=== PATIENT | female | born 1960 | race Caucasian/White ===

== ENCOUNTER 2016-12-21 18:22 | Emergency (ER) | payer MEDICARE ==
--- NOTE | 2016-12-21 20:06 | ER Document Report ---
HPI - HPI Patient complains to provider of: Dry skin patch Onset: Other - 3 days Onset/Duration: Persistent Quality of pain: No pain Pain Level: 0 Context: Patient presents complaining of a mildly pruritic dry skin patch to her posterior left leg. Patient states area has been there for the past 3 days. Patient denies any fever or injury. Patient additionally reports that she recently got her NovoLog 70/30 prescription refilled but she left the medication [place] a [place]. Patient states that the medicine was exposed to high heat and concerned will no longer be useful. Patient states that she called her insurance provider and they advised her that they will not pay for her to refill this medication. Patient states that the medication was over $3000. Patient states her insurance company advised her that if she changed the prescription to something else such as Novolin that they would be able to cover a new prescription. Patient is requesting a prescription of Novolin 70/30. Patient states she just moved to this area and has not gotten established with a primary doctor yet. Associated Symptoms: Other - dry Skin Exacerbated by: Denies Relieved by: Denies Similar symptoms previously: No Recently seen / treated by doctor: No - ROS ROS below otherwise negative: Yes Systems Reviewed and Negative: Yes All other systems reviewed and negative - CONSTITUTIONAL Constitutional: DENIES: Fever, Chills - MUSCULOSKELETAL Musculoskeletal: DENIES: Extremity pain - DERM Skin Color: Normal Notes: dry skin <MARGARET HAGAN - Last Filed: 12/21/16 21:53> Past Medical History - General Information source: Patient - Social History Smoking Status: Current Every Day Smoker Frequency of alcohol use: None Drug Abuse: None Occupation: none Lives with: Family Family History: Reviewed & Not Pertinent Patient has suicidal ideation: No Patient has homicidal ideation: No - Medical History Medical History: Other - RSD Endocrine Medical History: Reports: Hx Diabetes Mellitus Type 1 Renal/ Medical History: Denies: Hx Peritoneal Dialysis Past Surgical History: Reports: Hx Appendectomy, Hx Tubal Ligation <MARGARET HAGAN - Last Filed: 12/21/16 21:53> Vertical Provider Document - CONSTITUTIONAL Agree With Documented VS: Yes Exam Limitations: No Limitations General Appearance: WD/WN, No Apparent Distress - INFECTION CONTROL TRAVEL OUTSIDE OF THE [place] IN LAST 30 DAYS: No - HEENT HEENT: Atraumatic, Normocephalic - NECK Neck: Normal Inspection, Supple - RESPIRATORY Respiratory: Breath Sounds Normal, No Respiratory Distress O2 Sat by Pulse Oximetry: 96 - CARDIOVASCULAR Cardiovascular: Regular Rate, Regular Rhythm Pulses: Normal: Dorsalis pedis - MUSCULOSKELETAL/EXTREMETIES Musculoskeletal/Extremeties: MAEW, FROM - NEURO Level of Consciousness: Awake, Alert, Appropriate Motor/Sensory: No Motor Deficit - DERM Integumentary: Warm, Dry, Rash - Pt with crusting, scaling dry patch posterior left lower extremity, no erythema, no concern for cellulitis <MARGARET HAGAN - Last Filed: 12/21/16 21:53> Course - Re-evaluation Re-evalutation: 12/21/16 20:[address] Evans regarding patient presentation and her request to switch her medication. Dr. Evans advises consultation with rover tender for further advisement. 12/21/16 20:[address] Tadeo (endocrinology) at [facility] states that is a slight difference in the formulation between the NovoLog 7030 and Novolin 70/30. States that if this patient has good control of her blood sugar that her blood sugar might run a little bit lower with the Novolin and recommends decreasing the dose of Novolin by 10 units per each dose. Otherwise states that there should not be any significant problems with temporarily changing to Novolin 7030 so that patient can get her medication filled and be compliant with treating her diabetes. 12/21/16 20:35 The patient has been informed that they may have pre-hypertension or hypertension based on a blood pressure reading in the emergency department. I recommend that patient call the primary care provider listed on their discharge instructions or a physician of their choice by this week to arrange follow-up for further evaluation of possible pre-hypertension her hypertension. - Vital Signs Vital signs: Temp Pulse Resp BP Pulse Ox 98.9 F 101 H 18 141/70 H 96 12/21/16 18:27 12/21/16 18:27 12/21/16 18:27 12/21/16 18:27 12/21/16 18:27 <MARGARET HAGAN - Last Filed: 12/21/16 21:53> - Vital Signs Vital signs: Temp Pulse Resp BP Pulse Ox 98.7 F 90 18 138/70 H 96 12/21/16 21:00 12/21/16 21:00 12/21/16 21:00 12/21/16 21:00 12/21/16 21:56 <MARIO EVANS - Last Filed: 12/22/16 14:52> Discharge <MARGARET HAGAN - Last Filed: 12/21/16 21:53> <MARIO EVANS - Last Filed: 12/22/16 14:52> - Discharge Clinical Impression: Dry skin dermatitis, Elevated blood pressure reading, Hx of diabetes mellitus Condition: Stable Disposition: HOME, SELF-CARE Instructions: Topical Steroid Cream or Ointment (OM), Diabetes ([facility]), Family Physicians / Practices Additional Instructions: Return immediately for any new or worsening symptoms Followup with your primary care provider, call tomorrow to make a followup appointment Blood pressure was elevated today, recheck with the primary doctor next week to have this reevaluated Switching from NovoLog to Novolin may cause your blood sugar to run a little bit lower than usual, therefore we will decrease your usual dose of your insulin , while you are taking Novolin 70/30. You will need to monitor your blood sugar more frequently especially if you start to feel like your blood sugar is running low. Follow-up with the primary care provider for any additional refills of your medications. Prescriptions: Insulin NPH Hum/Reg Insulin Hm [Novolin 70-30 100 Unit/ml Vial] 1 dose SQ BID # 10 ml Triamcinolone Acetonide [Aristocort 0.1% Cream] 1 applic TP TID #60 gm Forms: Elevated Blood Pressure Referrals: [facility] [Provider Group] - Follow up as needed [facility] [Provider Group] - 12/24/16
[2016-12-21 21:11] VITALS: BP 138/70
== END 2016-12-21 21:00 | disposition home or self-care (01) ==
LOC: ER 18:22
DX: L30.8 Other specified dermatitis (principal); R03.0 Elevated blood-pressure reading, without diagnosis of hypertension; E10.9 Type 1 diabetes mellitus without complications; Z79.4 Long term (current) use of insulin
CPT/HCPCS: 99283

== ENCOUNTER 2017-10-13 18:47 | Inpatient (IN) | payer MEDICARE ==
[2017-10-13] MEDS ORDERED: NORMAL SALINE 1000 ML 1,000 ML IV ONE ×3 (18:58→22:26)
--- NOTE | 2017-10-13 19:01 | ER Document Report ---
ED Medical Screen (RME) - General Chief Complaint: Nausea/Vomiting Stated Complaint: NAUSEA VOMITING Time Seen by Provider: 10/13/17 18:54 Notes: This 57-year-old female patient reports onset about 8:00 this morning nausea vomiting. She has had this all day long. When EMS picked up the patient she is quite hypotensive, they document giving 150 mL's of normal saline and IV Zofran. Her nausea is better but she remains hypotensive with a blood pressure of 88 recorded at triage here. Her normal blood pressure is in the 135-145 range based on prior visits. IV normal saline will be hung using the saline lock in her hand and a request was made for a bed in the main emergency department as soon as possible. I have greeted and performed a rapid initial assessment of this patient. A comprehensive ED assessment and evaluation of the patient, analysis of test results and completion of the medical decision making process will be conducted by additional ED providers. TRAVEL OUTSIDE OF THE [place] IN LAST 30 DAYS: No - Related Data Allergies/Adverse Reactions: morphine Allergy (Verified 12/21/16 18:30)
[2017-10-13] MEDS ORDERED: ONDANSETRON HCL INJ/PF 4 MG/2 ML SDV IV ONE (19:24)
[2017-10-13 19:37] LABS: HEMATOCRIT 38.6 % (36.0-47.0); HEMOGLOBIN 11.6 g/dL (12.0-15.5); MEAN CORPUSCULAR HEMOGLOBIN 19.4 pg (27.0-33.4); MEAN CORPUSCULAR HGB CONC 30.1 g/dL (32.0-36.0); RED BLOOD COUNT 5.98 10^6/uL (3.72-5.28); RED CELL DISTRIBUTION WIDTH 20.7 % (11.5-14.0); WHITE BLOOD COUNT 10.4 10^3/uL (4.0-10.5)
[2017-10-13 19:49] LABS: ALANINE AMINOTRANSFERASE 23 U/L (9-52); ALBUMIN 4.6 g/dL (3.5-5.0); ALKALINE PHOSPHATASE 118 U/L (38-126); ANION GAP 18 (5-19); ASPARTATE AMINO TRANSFERASE 24 U/L (14-36); BILIRUBIN,DIRECT 0.2 mg/dL (0.0-0.4); BILIRUBIN,TOTAL 0.9 mg/dL (0.2-1.3); BLOOD UREA NITROGEN 23 mg/dL (7-20); CALCIUM 10.1 mg/dL (8.4-10.2); CARBON DIOXIDE 23 mmol/L (22-30); CHLORIDE 103 mmol/L (98-107); CREATINE KINASE 42 U/L (30-135); GLUCOSE 264 mg/dL (75-110); LIPASE 269.8 U/L (23-300); TOTAL PROTEIN 8.3 g/dL (6.3-8.2)
[2017-10-13 19:57] LABS: ABSOLUTE LYMPHOCYTES# (MANUAL) 1.7 10^3/uL (0.5-4.7); ABSOLUTE MONOCYTES # (MANUAL) 0.2 10^3/uL (0.1-1.4); ABSOLUTE NEUTROPHILS# (MANUAL) 8.5 10^3/uL (1.7-8.2); BASOPHILS % (MANUAL) 0 % (0-2); EOSINOPHILS % (MANUAL) 0 % (0-6); LYMPHOCYTES % (MANUAL) 15 % (13-45); MONOCYTES % (MANUAL) 2 % (3-13); SEGMENTED NEUTROPHILS % (MAN) 69 % (42-78); TOTAL CELLS COUNTED 100
--- NOTE | 2017-10-13 19:59 | EKG REPORT ---
SEVERITY:- OTHERWISE NORMAL ECG - SINUS TACHYCARDIA : Confirmed by: Hussein Byrd MD 13-Oct-2017 19:58:44
[2017-10-13 20:03] LABS: ANISOCYTOSIS 3+; HYPOCHROMASIA 2+; OVALOCYTES 1+; PLATELET CLUMPS PRESENT; PLATELET COMMENT DECREASED; POIKILOCYTOSIS 1+; POLYCHROMASIA SLIGHT; TEAR DROP CELLS SLIGHT; TOXIC GRANULATION SLIGHT; TOXIC VACUOLATION PRESENT
[2017-10-13 20:04] LABS: PLATELET COUNT 147 10^3/uL (150-450)
[2017-10-13 20:05] LABS: BAND NEUTROPHILS % (MANUAL) 13 % (3-5); MEAN CORPUSCULAR VOLUME 64 fl (80-97)
[2017-10-13] MEDS ORDERED: FLUCONAZOLE 100 MG TABLET PO ONE (20:15)
--- NOTE | 2017-10-13 21:16 | ER Document Report ---
ED General - General Chief Complaint: Nausea/Vomiting Stated Complaint: NAUSEA VOMITING Time Seen by Provider: 10/13/17 18:54 Notes: Patient is a 57-year-old female with a past medical history of COPD, hypertension, hyperlipidemia, diabetes, chronic pain, who presents with 2 days of persistent diarrhea as well as 24 hours of vomiting. The patient reports that she has been unable to tolerate any kind of oral fluid over the past 24 hours. She states the diarrhea is persistent and that she is having 4-5 diarrheal bowel movements every day. She states that she feels very dehydrated. She has recently moved to the area and does not have any access to primary care. She denies any focal abdominal pain but does note intermittent, moderate, cramping abdominal pain. She denies any fever, headache or neck pain although does note cough. She states that she is chronically short of breath secondary to her COPD and does not normally have home oxygen available to her. She denies any prior history of abdominal surgeries. TRAVEL OUTSIDE OF THE [place] IN LAST 30 DAYS: No - Related Data Allergies/Adverse Reactions: morphine Allergy (Verified 12/21/16 18:30) Past Medical History - General Information source: Patient, Relative - Social History Smoking Status: Current Every Day Smoker Frequency of alcohol use: None Drug Abuse: None Lives with: Family Family History: Reviewed & Not Pertinent Patient has suicidal ideation: No Patient has homicidal ideation: No Endocrine Medical History: Reports: Hx Diabetes Mellitus Type 2 Renal/ Medical History: Denies: Hx Peritoneal Dialysis Psychiatric Medical History: Reports: Hx Depression Past Surgical History: Reports: Hx Appendectomy, Hx Orthopedic Surgery - R ankle , Hx Tubal Ligation Review of Systems - Review of Systems Notes: Constitutional: Negative for fever. HENT: Negative for sore throat. Eyes: Negative for visual changes. Cardiovascular: Negative for chest pain. Positive for lightheadedness Respiratory: Negative for shortness of breath. Gastrointestinal: Positive for abdominal cramping, vomiting and diarrhea Genitourinary: Negative for dysuria. Musculoskeletal: Negative for back pain. Skin: Negative for rash. Neurological: Negative for headaches, weakness or numbness. 10 point ROS negative except as marked above and in HPI. Physical Exam - Vital signs Vitals: Temp Pulse Resp BP Pulse Ox 99.5 F 105 H 20 88/45 L 94 10/13/17 19:00 10/13/17 19:00 10/13/17 19:00 10/13/17 19:00 10/13/17 19:00 Interpretation: Hypotensive, Tachycardic Notes: PHYSICAL EXAMINATION: GENERAL: Appears uncomfortable, somewhat lethargic but in no acute distress HEAD: Atraumatic, normocephalic. EYES: Pupils equal round and reactive to light, extraocular movements intact, sclera anicteric, conjunctiva are normal. ENT: nares patent, oropharynx clear without exudates. Moderately dry mucous membranes. NECK: Normal range of motion, supple without lymphadenopathy LUNGS: Breath sounds clear to auscultation bilaterally and equal. No wheezes rales or rhonchi. HEART: Regular tachycardia without murmurs ABDOMEN: Soft, nontender, normoactive bowel sounds. No guarding, no rebound. No masses appreciated. EXTREMITIES: Normal range of motion, no pitting or edema. No cyanosis. NEUROLOGICAL: No focal neurological deficits. Moves all extremities spontaneously and on command. PSYCH: Somewhat lethargic SKIN: Warm, Dry, poor turgor, no rashes or lesions noted. Course - Re-evaluation Re-evalutation: 10/13/172009 Patient presents with nausea, vomiting and diarrhea that has been ongoing for the past 24 hours. The patient reports that she has had no ability to tolerate any fluid over this course of time. On examination the patient appears clinically dehydrated so was noted to be hypotensive into the 80s at time of arrival. Her blood pressure is improved to the upper 90s systolic after receiving 1 L of IV fluids and she is receiving to us her second liter at this time. Patient is noted to be mildly hypoxemic and reports a baseline history of COPD although does not have home oxygen supplementation at baseline. A chest x-ray will be obtained to exclude an acute infiltrate. She denies any chest pain to suggest the diagnosis of ACS or acute pulmonary embolus. Patient has no prior history of acute renal failure. Attempts at risk obtaining a catheterized urine specimen did not reveal any urine in the patient's bladder despite her to receiving 1 L of fluid. Will also obtain a renal ultrasound to evaluate for structural abnormalities that could be reducing the patient's acute kidney injury as her BUN/creatinine ratio is lower than would be anticipated for dehydration. Patient is in guarded condition and will require frequent reassessments. 10/13/17 21:15 Patient has again had a deterioration of her blood pressure currently 84 on 50. The second liter of fluid is now being hung. Will continue to monitor her closely. She remains in very guarded condition. 10/13/17 21:44 Patient's blood pressure has now improved to 106 on 58 with IV fluids. She remains moderately tachycardic at 104. Will continue to reassess frequently. 10/13/17 22:27 Patient is again having a deterioration in her blood pressure after the second liter of IV fluids has completed. Will start a third liter of IV fluids at this time. Lactate at 2. Venous blood gas unremarkable. 10/13/17 23:41 Patient's blood pressures remained within acceptable limits now for over an hour. I continue to weigh the renal ultrasound. I discussed with Dr. Ortiz and he has accepted the patient for hospitalization. - Vital Signs Vital signs: Temp Pulse Resp BP Pulse Ox 99.5 F 105 H 20 106/54 L 97 10/13/17 19:00 10/13/17 19:00 10/13/17 23:10 10/13/17 23:10 10/13/17 23:10 - Laboratory Result Diagrams: 10/13/17 19:15 10/13/17 19:15 Laboratory results interpreted by me: 10/13/17 10/13/17 10/13/17 19:15 19:15 19:33 RBC 5.98 H Hgb 11.6 L MCV 64 L MCH 19.4 L MCHC 30.1 L RDW 20.7 H Plt Count 147 L Band Neutrophils % 13 H Monocytes % (Manual) 2 L Abs Neuts (Manual) 8.5 H BUN 23 H Creatinine 2.15 H Est GFR ( Amer) 28 L Est GFR (Non-Af Amer) 23 L Glucose 264 H POC Glucose 240 H Total Protein 8.3 H Urine Protein Urine Glucose (UA) Urine Urobilinogen Ur Leukocyte Esterase 10/13/17 21:45 RBC Hgb MCV MCH MCHC RDW Plt Count Band Neutrophils % Monocytes % (Manual) Abs Neuts (Manual) BUN Creatinine Est GFR ( Amer) Est GFR (Non-Af Amer) Glucose POC Glucose Total Protein Urine Protein 100 H Urine Glucose (UA) >=500 H Urine Urobilinogen 2.0 H Ur Leukocyte Esterase TRACE H - Diagnostic Test Radiology reviewed: Image reviewed, Reports reviewed Radiology results interpreted by me: 10/13/17 22:28 Chest x-ray: No acute infiltrate or pneumothorax - EKG Interpretation by Me Additional EKG results interpreted by me: 10/14/17 01:23 Sinus tachycardia. Rate 106. No ST elevations or depressions. QTC is 468. Critical Care Note - Critical Care Note Total time excluding time spent on procedures (mins): 37 Comments: Critical care time spent obtaining history from patient or surrogate, discussions with consultants, development of treatment plan with patient or surrogate, evaluation of patient's response to treatment, examination of patient , ordering and performing treatments and interventions, ordering and review of laboratory studies, re-evaluation of patient's condition, ordering and review of radiographic studies and review of old charts Discharge - Discharge Clinical Impression: Hypovolemia, Vomiting and diarrhea, Bandemia, Hypoxia Hypotension Qualifiers: Hypotension type: unspecified hypotension type Qualified Code(s): I95.9 - Hypotension, unspecified Condition: Fair Disposition: ADMITTED INPATIENT Admitting Provider: Hospitalist Unit Admitted: Telemetry
--- NOTE | 2017-10-13 21:34 | RADIOLOGY REPORT (SQ) ---
EXAM DESCRIPTION: CHEST SINGLE VIEW COMPLETED DATE/TIME: 10/13/2017 9:25 pm REASON FOR STUDY: hypoxia COMPARISON: None. EXAM PARAMETERS: NUMBER OF VIEWS: One view. TECHNIQUE: Single frontal radiographic view of the chest acquired. RADIATION DOSE: NA LIMITATIONS: None. FINDINGS: LUNGS AND PLEURA: No opacities, masses or pneumothorax. No pleural effusion. MEDIASTINUM AND HILAR STRUCTURES: No masses. Contour normal. HEART AND VASCULAR STRUCTURES: Heart normal in size. Normal vasculature. BONES: No acute findings. HARDWARE: None in the chest. OTHER: No other significant finding. IMPRESSION: NO ACUTE RADIOGRAPHIC FINDING IN THE CHEST. TECHNICAL DOCUMENTATION: JOB ID: [id number] [employer]- All Rights Reserved Reading location - IP/workstation name: [email or web address]
[2017-10-13 21:48] LABS: VENOUS BLOOD BASE EXCESS -4.5 mmol/L; VENOUS BLOOD HCO3 21.6 mmol/L (20-32); VENOUS BLOOD PCO2 43.4 mmHg (35-63); VENOUS BLOOD PH 7.31 (7.30-7.42)
[2017-10-13 22:36] LABS: AMORPHOUS SEDIMENT,URINE TRACE /HPF; APPEARANCE,URINE TURBID; BILIRUBIN,URINE NEGATIVE (NEGATIVE); COLOR,URINE AMBER; GLUCOSE, URINE >=500 mg/dL (NEGATIVE); KETONES,URINE NEGATIVE (NEGATIVE); LEUKOCYTE ESTERASE,URINE TRACE (NEGATIVE); NITRITE,URINE NEGATIVE (NEGATIVE); PROTEIN,URINE 100 mg/dL (NEGATIVE); URINE SPECIFIC GRAVITY 1.021
[2017-10-13 23:28] LABS: BACTERIA (WET MOUNT) 3+ BACTERIA SEEN; EPITHELIALS (WET MOUNT) 3+ EPITHELIALS SEEN; RBCS (WET MOUNT) RARE RBCS SEEN; T.VAGINALIS (WET MOUNT) NO TRICHOMONAS SEEN; WBCS (WET MOUNT) 3+ WBCS SEEN; YEAST (WET MOUNT) NO YEAST SEEN
--- NOTE | 2017-10-14 00:47 | RADIOLOGY REPORT (SQ) ---
EXAM DESCRIPTION: CT ABD/PELVIS NO ORAL OR IV CLINICAL HISTORY: 57 years Female, persistent diarrhea, cristiano COMPARISON: None. TECHNIQUE: No contrast. Coronal and sagittal reformat. This exam was performed according to our departmental dose-optimization program, which includes automated exposure control, adjustment of the mA and/or kV according to patient size and/or use of iterative reconstruction technique. FINDINGS: Moderate splenomegaly with splenic index of 1386. No free fluid. Mild dextroconvexity. Atherosclerosis. Mild gaseous distention of the distal esophagus. Likely benign 2.8 cm exophytic cyst of the left renal upper pole. Newby catheter. No evidence of appendicitis. Appendix not discerned. Moderate L5-S1 disc bulge. Unenhanced inferior chest, abdominopelvic structures, and musculoskeleton appear otherwise grossly unremarkable. Impression: Moderate splenomegaly.
[2017-10-14] MEDS ORDERED: IPRATROPIUM/ALBUTEROL 0.5-2.5 MG/3 ML AMPUL NEB PRN (01:04)
[2017-10-14] MEDS ORDERED: MAG HYDROX/AL HYDROX/SIMETH SUSP 30 ML UDCUP PO PRN (01:04)
[2017-10-14] MEDS ORDERED: NORMAL SALINE 1000 ML 1,000 ML IV PRN (01:15)
[2017-10-14 01:48] LABS: URINE AMPHETAMINES SCREEN NEGATIVE; URINE BARBITURATES SCREEN NEGATIVE; URINE BENZODIAZEPINES SCREEN NEGATIVE; URINE MARIJUANA (THC) SCREEN NEGATIVE; URINE METHADONE SCREEN NEGATIVE
[2017-10-14 01:57] LABS: URINE PHENCYCLIDINE SCREEN NEGATIVE
[2017-10-14 02:35] LABS: CHLAM PCR NOT DETECTED (NOT DETECT); GON PCR NOT DETECTED (NOT DETECT)
[2017-10-14 04:04] LABS: URINE COCAINE SCREEN NEGATIVE
[2017-10-14] MEDS ORDERED: GLUCAGON,HUMAN RECOMB 1 MG INJ IM PRN (04:53)
[2017-10-14] MEDS ORDERED: DEXTROSE 50%-WATER 25 GM/50 ML DISP.SYRIN IV PRN ×2 (04:53)
[2017-10-14] MEDS ORDERED: DEXTROSE 40% GEL 15 GM TUBE PO PRN ×2 (04:53)
[2017-10-14 06:09] LABS: ABSOLUTE EOSINOPHILS # (AUTO) 0.1 10^3/uL (0.0-0.6); ABSOLUTE LYMPHOCYTES (AUTO) 1.2 10^3/uL (0.5-4.7); ABSOLUTE MONOCYTES (AUTO) 0.5 10^3/uL (0.1-1.4); ABSOLUTE NEUT (AUTO) 3.5 10^3/uL (1.7-8.2); BASOPHILS % (AUTO) 0.4 % (0-2); EOSINOPHILS % (AUTO) 2.5 % (0-6); HEMATOCRIT 30.2 % (36.0-47.0); LYMPHOCYTES % (AUTO) 21.8 % (13-45); MEAN CORPUSCULAR HEMOGLOBIN 19.5 pg (27.0-33.4); MEAN CORPUSCULAR HGB CONC 30.4 g/dL (32.0-36.0); MEAN CORPUSCULAR VOLUME 64 fl (80-97); MONOCYTES % (AUTO) 9.7 % (3-13); RED BLOOD COUNT 4.69 10^6/uL (3.72-5.28); RED CELL DISTRIBUTION WIDTH 20.5 % (11.5-14.0); SEGMENTED NEUTROPHILS % (AUTO) 65.6 % (42-78); TOTAL CELLS COUNTED % (AUTO) 100 %; WHITE BLOOD COUNT 5.3 10^3/uL (4.0-10.5)
[2017-10-14] MEDS: HEPARIN SOD (PORCINE) 5,000 UNIT/ML 1 ML SYRINGE SUBCUT SCH ×3 (06:24→21:32)
[2017-10-14 06:30] LABS: ANION GAP 11 (5-19); BLOOD UREA NITROGEN 21 mg/dL (7-20); CALCIUM 8.6 mg/dL (8.4-10.2); CARBON DIOXIDE 22 mmol/L (22-30); CHLORIDE 108 mmol/L (98-107); GLUCOSE 175 mg/dL (75-110); POTASSIUM 4.3 mmol/L (3.6-5.0); SODIUM 140.9 mmol/L (137-145)
[2017-10-14 06:53] LABS: HEMOGLOBIN 9.2 g/dL (12.0-15.5); PLATELET COUNT 73 10^3/uL (150-450)
[2017-10-14 07:00] LABS: PLATELET COMMENT DECREASED; PLATELET LARGE PRESENT
[2017-10-14 07:03] LABS: ANISOCYTOSIS 3+
[2017-10-14 07:04] LABS: HYPOCHROMASIA 2+; OVALOCYTES 1+; POIKILOCYTOSIS 1+
[2017-10-14 07:05] LABS: TEAR DROP CELLS SLIGHT
--- NOTE | 2017-10-14 07:26 | PDOC H&P ---
History of Present Illness Admission Date/PCP: 10/14/17 01:09 NIRMAL PACHECO MD Patient complains of: 48 hours of nausea vomiting diarrhea History of Present Illness: JESENIA NOVAK is a 57 year old female past medical history of COPD, hypertension, dyslipidemia, diabetes and chronic pain. Patient presents with 48 hours of nausea vomiting diarrhea without blood. Denies fever chills chest pain or shortness of breath. No recent new medications, suspect meals, infectious contacts. In the emergency room she is found to have hypotension, bandemia and acute renal failure. Urinalysis, chest x-ray and CT abdomen are negative for acute findings. Patient is currently asymptomatic she is received 3 L of normal saline and referred to the hospitalist for admission Past Medical History Pulmonary Medical History: Reports: Chronic Obstructive Pulmonary Disease (COPD) Endocrine Medical History: Reports: Diabetes Mellitus Type 2 Psychiatric Medical History: Reports: Depression Past Surgical History Past Surgical History: Reports: Appendectomy, Orthopedic Surgery - R ankle, Tubal Ligation Social History Information Source: Patient Lives with: Family Smoking Status: Current Every Day Smoker - Advance Directive Resuscitation Status: Full Code Family History Family History: COPD Parental Family History Reviewed: Yes Children Family History Reviewed: Yes Sibling(s) Family History Reviewed.: Yes Medication/Allergy Home Medications: Insulin NPH Hum/Reg Insulin Hm [Novolin 70-30 100 Unit/ml Vial] 1 dose SQ BID # 10 ml 12/21/16 Triamcinolone Acetonide [Aristocort 0.1% Cream] 1 applic TP TID #60 gm 12/21/16 Aripiprazole 1 tab PO DAILY 10/14/17 Canagliflozin [Invokana] 1 tab PO ACBRKFST 10/14/17 Lovastatin [Altoprev] 40 mg PO ACSUPPER 10/14/17 Metoprolol Tartrate 25 mg PO BID 10/14/17 Omeprazole/Sodium Bicarbonate [Omeppi 20 mg-1,100 mg Capsule] 1 cap PO DAILY Pregabalin [Lyrica] 1 cap PO TID 10/14/17 Sertraline HCl [Sertraline HCl] 1 tab PO DAILY 10/14/17 Allergies/Adverse Reactions: morphine Allergy (Verified 12/21/16 18:30) Review of Systems Constitutional: ABSENT: chills, fever(s), headache(s), weight gain, weight loss Eyes: ABSENT: visual disturbances Ears: ABSENT: hearing changes Cardiovascular: ABSENT: chest pain, dyspnea on exertion, edema, orthropnea, palpitations Respiratory: ABSENT: cough, hemoptysis Gastrointestinal: ABSENT: abdominal pain, constipation, diarrhea, hematemesis, hematochezia, nausea, vomiting Genitourinary: ABSENT: dysuria, hematuria Musculoskeletal: ABSENT: joint swelling Integumentary: ABSENT: rash, wounds Neurological: ABSENT: abnormal gait, abnormal speech, confusion, dizziness, focal weakness, syncope Psychiatric: ABSENT: anxiety, depression, homidical ideation, suicidal ideation Endocrine: ABSENT: cold intolerance, heat intolerance, polydipsia, polyuria Hematologic/Lymphatic: ABSENT: easy bleeding, easy bruising Physical Exam Vital Signs: Temp Pulse Resp BP Pulse Ox 97.9 F 96 19 99/58 L 95 10/14/17 03:16 10/14/17 03:16 10/14/17 03:16 10/14/17 03:16 10/14/17 03:16 Intake & Output 10/12/17 10/13/17 10/14/17 11:59 11:59 11:59 Intake Total 620 Output Total 300 Balance 320 Weight 103.2 kg General appearance: PRESENT: no acute distress, well-developed, well-nourished Head exam: PRESENT: atraumatic, normocephalic Eye exam: PRESENT: conjunctiva pink, EOMI, PERRLA. ABSENT: scleral icterus Ear exam: PRESENT: normal external ear exam Mouth exam: PRESENT: moist, tongue midline Neck exam: ABSENT: carotid bruit, JVD, lymphadenopathy, thyromegaly Respiratory exam: PRESENT: clear to auscultation rosanna. ABSENT: rales, rhonchi, tachypnea, wheezes Cardiovascular exam: PRESENT: RRR. ABSENT: diastolic murmur, rubs, systolic murmur Pulses: PRESENT: normal dorsalis pedis pul Vascular exam: PRESENT: normal capillary refill GI/Abdominal exam: PRESENT: normal bowel sounds, soft. ABSENT: distended, guarding, mass, organolmegaly, rebound, tenderness Rectal exam: PRESENT: deferred Extremities exam: PRESENT: full ROM. ABSENT: calf tenderness, clubbing, pedal edema Neurological exam: PRESENT: alert, awake, oriented to person, oriented to place , oriented to time, oriented to situation, CN II-XII grossly intact. ABSENT: motor sensory deficit Psychiatric exam: PRESENT: appropriate affect, normal mood. ABSENT: homicidal ideation, suicidal ideation Skin exam: PRESENT: dry, intact, warm. ABSENT: cyanosis, rash Results Laboratory Results: 10/14/17 05:43 10/14/17 05:43 10/14/17 10/14/17 05:43 05:43 WBC 5.3 RBC 4.69 Hgb 9.2 L D Hct 30.2 L MCV 64 L MCH 19.5 L MCHC 30.4 L RDW 20.5 H Plt Count 73 L Seg Neutrophils % 65.6 Lymphocytes % 21.8 Monocytes % 9.7 Eosinophils % 2.5 Basophils % 0.4 Absolute Neutrophils 3.5 Absolute Lymphocytes 1.2 Absolute Monocytes 0.5 Absolute Eosinophils 0.1 Absolute Basophils 0.0 Sodium 140.9 Potassium 4.3 Chloride 108 H Carbon Dioxide 22 Anion Gap 11 BUN 21 H Creatinine 1.36 H Est GFR ( Amer) 48 L Est GFR (Non-Af Amer) 40 L Glucose 175 H Calcium 8.6 Impressions: Chest X-Ray 10/13/17 20:39 IMPRESSION: NO ACUTE RADIOGRAPHIC FINDING IN THE CHEST. Assessment & Plan - Diagnosis (1) Gastroenteritis Is this a current diagnosis for this admission?: Yes Plan: Bowel rest, symptomatic management, electrolyte repletion as needed (2) Acute renal failure Is this a current diagnosis for this admission?: Yes Plan: Secondary to hypovolemia and hypotension. IV fluid challenge and reevaluate avoid nephrotoxic meds and doses. Follow-up chemistry (3) Bandemia Is this a current diagnosis for this admission?: Yes Plan: Unclear source, possibly secondary to gastroenteritis, afebrile. Repeat CBC consider IV antibiotics and blood culture (4) Hypovolemia Is this a current diagnosis for this admission?: Yes Plan: IV fluid resuscitation, evaluate random cortisol level (5) Vomiting and diarrhea Is this a current diagnosis for this admission?: Yes Plan: Currently asymptomatic, consider stool studies. - Time Time Spent: 50 to 70 Minutes - Inpatient Certification Medical Necessity: Need Close Monitoring Due to Risk of Patient Decompensation
[2017-10-14] MEDS ORDERED: NORMAL SALINE 1000 ML 1,000 ML IV ONE (08:30)
--- NOTE | 2017-10-14 09:12 | PDOC PROGRESS REPORT ---
Subjective Progress Note for:: 10/14/17 Subjective:: Patient is feeling better this morning She has no diarrhea. No no nausea no vomiting she is hungry for breakfast No chest pain or palpitations no shortness of breath No fever no chills Renal function has improved Reason For Visit: HYPOTENSION, ARF HYPERKALEMIA Physical Exam Vital Signs: Temp Pulse Resp BP Pulse Ox 98.5 F 90 16 120/51 L 96 10/14/17 07:37 10/14/17 07:57 10/14/17 07:57 10/14/17 07:37 10/14/17 07:57 Intake & Output 10/13/17 10/14/17 10/15/17 00:59 00:59 00:59 Intake Total 620 Output Total 300 Balance 320 Weight 103.2 kg General appearance: PRESENT: no acute distress, well-developed, well-nourished Head exam: PRESENT: atraumatic, normocephalic Eye exam: PRESENT: conjunctiva pink, EOMI, PERRLA. ABSENT: scleral icterus Ear exam: PRESENT: normal external ear exam Mouth exam: PRESENT: moist, tongue midline Neck exam: ABSENT: carotid bruit, JVD, lymphadenopathy, thyromegaly Respiratory exam: PRESENT: clear to auscultation rosanna. ABSENT: rales, rhonchi, wheezes Cardiovascular exam: PRESENT: RRR. ABSENT: diastolic murmur, rubs, systolic murmur Pulses: PRESENT: normal dorsalis pedis pul Vascular exam: PRESENT: normal capillary refill GI/Abdominal exam: PRESENT: normal bowel sounds, soft. ABSENT: distended, guarding, mass, organolmegaly, rebound, tenderness Rectal exam: PRESENT: deferred Extremities exam: PRESENT: full ROM. ABSENT: calf tenderness, clubbing, pedal edema Neurological exam: PRESENT: alert, awake, oriented to person, oriented to place , oriented to time, oriented to situation, CN II-XII grossly intact. ABSENT: motor sensory deficit Psychiatric exam: PRESENT: appropriate affect, normal mood. ABSENT: homicidal ideation, suicidal ideation Skin exam: PRESENT: dry, intact, warm. ABSENT: cyanosis, rash Results Laboratory Results: 10/14/17 05:43 10/14/17 05:43 10/14/17 10/14/17 05:43 05:43 WBC 5.3 RBC 4.69 Hgb 9.2 L D Hct 30.2 L MCV 64 L MCH 19.5 L MCHC 30.4 L RDW 20.5 H Plt Count 73 L Seg Neutrophils % 65.6 Lymphocytes % 21.8 Monocytes % 9.7 Eosinophils % 2.5 Basophils % 0.4 Absolute Neutrophils 3.5 Absolute Lymphocytes 1.2 Absolute Monocytes 0.5 Absolute Eosinophils 0.1 Absolute Basophils 0.0 Sodium 140.9 Potassium 4.3 Chloride 108 H Carbon Dioxide 22 Anion Gap 11 BUN 21 H Creatinine 1.36 H Est GFR ( Amer) 48 L Est GFR (Non-Af Amer) 40 L Glucose 175 H Calcium 8.6 Impressions: Chest X-Ray 10/13/17 20:39 IMPRESSION: NO ACUTE RADIOGRAPHIC FINDING IN THE CHEST. Assessment & Plan - Diagnosis (1) Acute renal failure Is this a current diagnosis for this admission?: Yes (2) Bandemia Is this a current diagnosis for this admission?: Yes (3) Gastroenteritis Is this a current diagnosis for this admission?: Yes (4) Hypotension Qualifiers: Hypotension type: unspecified hypotension type Qualified Code(s): I95.9 - Hypotension, unspecified Is this a current diagnosis for this admission?: Yes (5) Vomiting and diarrhea Is this a current diagnosis for this admission?: Yes (6) Microcytic anemia Is this a current diagnosis for this admission?: Yes Plan: Likely acute on chronic We will order labs Stools for occult blood - Time Time Spent with patient: Renal failure has improved Continue hydration IV Increase diet We will keep the patient another 24 hours She likely will be discharged in a.m. Time Spent with patient: 25-34 minutes Within: within 48 hours
[2017-10-14 09:45] LABS: ABSOLUTE RETICS # 0.089 10^6/uL (0.028-0.122); RETICULOCYTE COUNT (AUTO) 1.88 % (0.66-2.85)
[2017-10-14] MEDS ORDERED: METOPROLOL TARTRATE 50 MG TABLET PO SCH ×2 (10:00→22:00)
[2017-10-14] MEDS ORDERED: ARIPIPRAZOLE 5 MG TABLET PO SCH (10:00)
[2017-10-14] MEDS ORDERED: SERTRALINE HCL 50 MG TABLET PO SCH (10:00)
[2017-10-14] MEDS: NORMAL SALINE 1000 ML 1,000 ML IV PRN ×2 (10:15→15:20)
[2017-10-14 10:19] LABS: IRON(TIBC) 42.4 ug/dL (37-170)
[2017-10-14 10:56] LABS: FERRITIN 8.16 ng/mL (11.1-264.0)
[2017-10-14] MEDS: ACETAMINOPHEN 325 MG TABLET PO PRN ×2 (12:54→18:37)
[2017-10-14] MEDS: METOPROLOL TARTRATE 50 MG TABLET PO SCH ×2 (12:56→21:31)
[2017-10-14] MEDS ORDERED: SERTRALINE HCL 50 MG TABLET PO ONE (13:30)
[2017-10-14 16:16] LABS: PATH REVIEW PATHOLOGIST REVIEWED
[2017-10-14] MEDS: INSULIN LISPRO 100 UNIT/ML 3 ML VIAL SUBCUT PRN (16:51)
[2017-10-14] MEDS ORDERED: (PENDING PHARMACY ID) (Lovastatin [Lovastatin] 40 MG) PO SCH (17:00)
[2017-10-14] MEDS: CYANOCOBALAMIN (VITAMIN B-12) INJ 1000 MCG/1 ML VIAL IM SCH (18:15)
[2017-10-14] MEDS: NYSTATIN TOPICAL POWDER 15 GM TP SCH (18:40)
[2017-10-14] MEDS: LORAZEPAM 1 MG TABLET PO PRN (20:27)
[2017-10-14] MEDS: ATORVASTATIN CALCIUM 10 MG TABLET PO SCH ×2 (21:31→21:32)
[2017-10-14] MEDS: PREGABALIN 75 MG CAPSULE PO SCH (21:31)
[2017-10-14] MEDS: ARIPIPRAZOLE 5 MG TABLET PO SCH (21:31)
[2017-10-14] MEDS ORDERED: HUM INSULIN NPH/REG INSULIN HM 100 UNIT/1 ML 3 ML SUBCUT SCH (22:00)
[2017-10-15 05:04] LABS: ABSOLUTE EOSINOPHILS # (AUTO) 0.1 10^3/uL (0.0-0.6); ABSOLUTE LYMPHOCYTES (AUTO) 1.3 10^3/uL (0.5-4.7); ABSOLUTE MONOCYTES (AUTO) 0.3 10^3/uL (0.1-1.4); ABSOLUTE NEUT (AUTO) 3.1 10^3/uL (1.7-8.2); BASOPHILS % (AUTO) 0.5 % (0-2); EOSINOPHILS % (AUTO) 2.4 % (0-6); HEMATOCRIT 28.3 % (36.0-47.0); HEMOGLOBIN 8.5 g/dL (12.0-15.5); LYMPHOCYTES % (AUTO) 26.7 % (13-45); MEAN CORPUSCULAR HEMOGLOBIN 19.5 pg (27.0-33.4); MEAN CORPUSCULAR HGB CONC 30.2 g/dL (32.0-36.0); MEAN CORPUSCULAR VOLUME 65 fl (80-97); MONOCYTES % (AUTO) 5.6 % (3-13); RED BLOOD COUNT 4.38 10^6/uL (3.72-5.28); RED CELL DISTRIBUTION WIDTH 20.3 % (11.5-14.0); SEGMENTED NEUTROPHILS % (AUTO) 64.8 % (42-78); TOTAL CELLS COUNTED % (AUTO) 100 %; WHITE BLOOD COUNT 4.7 10^3/uL (4.0-10.5)
[2017-10-15 05:10] LABS: PLATELET COUNT 66 10^3/uL (150-450)
[2017-10-15] MEDS: HEPARIN SOD (PORCINE) 5,000 UNIT/ML 1 ML SYRINGE SUBCUT SCH ×3 (05:14→21:53)
[2017-10-15 05:21] LABS: ANION GAP 11 (5-19); BLOOD UREA NITROGEN 15 mg/dL (7-20); CALCIUM 9.1 mg/dL (8.4-10.2); CARBON DIOXIDE 22 mmol/L (22-30); CHLORIDE 107 mmol/L (98-107); GLUCOSE 181 mg/dL (75-110); SODIUM 140.4 mmol/L (137-145)
[2017-10-15 05:27] LABS: ANISOCYTOSIS 2+; HYPOCHROMASIA 2+; OVALOCYTES SLIGHT; PLATELET COMMENT DECREASED; PLATELET LARGE PRESENT; POIKILOCYTOSIS SLIGHT; POTASSIUM 4.5 mmol/L (3.6-5.0)
[2017-10-15 05:28] LABS: POLYCHROMASIA SLIGHT
[2017-10-15] MEDS: PREGABALIN 75 MG CAPSULE PO SCH ×3 (05:34→22:06)
[2017-10-15] MEDS: NORMAL SALINE 1000 ML 1,000 ML IV PRN (05:34)
[2017-10-15] MEDS: LANSOPRAZOLE 15 MG TAB.RAP.DR PO SCH (05:34)
[2017-10-15] MEDS ORDERED: HUM INSULIN NPH/REG INSULIN HM 100 UNIT/1 ML 3 ML SUBCUT SCH ×2 (08:00→22:00)
[2017-10-15] MEDS: METOPROLOL TARTRATE 50 MG TABLET PO SCH ×2 (09:13→22:07)
[2017-10-15] MEDS: NYSTATIN TOPICAL POWDER 15 GM TP SCH ×2 (09:13→17:16)
[2017-10-15] MEDS: FLUCONAZOLE 100 MG TABLET PO SCH (09:13)
[2017-10-15] MEDS: SERTRALINE HCL 50 MG TABLET PO SCH (09:13)
[2017-10-15] MEDS ORDERED: (PENDING PHARMACY ID) (Sertraline Hcl [Zoloft] 25 MG) PO SCH (10:00)
[2017-10-15] MEDS ORDERED: ARIPIPRAZOLE 5 MG TABLET PO SCH (10:00)
[2017-10-15] MEDS ORDERED: ONDANSETRON HCL INJ/PF 4 MG/2 ML SDV IV PRN (11:17)
[2017-10-15] MEDS: INSULIN LISPRO 100 UNIT/ML 3 ML VIAL SUBCUT PRN ×2 (13:12→17:16)
--- NOTE | 2017-10-15 13:21 | RADIOLOGY REPORT (SQ) ---
EXAM DESCRIPTION: CT ABD/PELVIS ORAL ONLY COMPLETED DATE/TIME: 10/15/2017 1:09 pm REASON FOR STUDY: ? recto vaginal fistula COMPARISON: CT abdomen pelvis 10/14/2017 TECHNIQUE: CT scan of the abdomen and pelvis performed without intravenous contrast. Patient drank a small amount of oral contrast. Images reviewed with lung, soft tissue, and bone windows. Reconstructed coronal and sagittal MPR imag es reviewed. All images stored on PACS. All CT scanners at this facility use dose modulation, iterative reconstruction, and/or weight based d osing when appropriate to reduce radiation dose to as low as reasonably achievable (ALARA). [facility]: Dose Right [facility]: CareDose [facility]: Dose Right [facility]: Teradose 4D [facility]: Smart Technologies RADIATION DOSE: CT Rad equipment meets quality standard of care and radiation dose reduction techniq ues were employed. CTDIvol: 23.0 mGy. DLP: 1320 mGy-cm.mGy. LIMITATIONS: Oral contrast is only seen in the stomach. FINDINGS: LOWER CHEST: Moderate cardiomegaly. Retrocardiac hiatal hernia. Lung bases are clear. NON-CONTRASTED LIVER, SPLEEN, ADRENALS: Liver normal size. Spleen 17 cm in length, unchanged 10/15/19 18. Adrenal glands are unremarkable. PANCREAS: No masses. No peripancreatic inflammatory changes. GALLBLADDER: No identified stones by CT criteria. No inflammatory changes to suggest cholecystitis. RIGHT KIDNEY AND URETER: No suspicious masses. Assessment limited by lack of IV contrast. No signif icant calcifications. No hydronephrosis or hydroureter. LEFT KIDNEY AND URETER: No suspicious masses. Assessment limited by lack of IV contrast. 3 cm cyst l eft mid pole kidney. No significant calcifications. No hydronephrosis or hydroureter. AORTA AND RETROPERITONEUM: No abdominal aortic aneurysm. Heavily calcified abdominal aorta BOWEL AND PERITONEAL CAVITY: No obvious masses or inflammatory changes. No free fluid. APPENDIX: Not identified, surgically absent PELVIS, BLADDER, AND ABDOMINAL WALL:No ventral hernia is identified. Newby catheter decompresses the bladder. Normal size female pelvic organs. Tiny air bubble in the vagina sagittal image 54. BONES: Degenerative disc changes lower lumbar spine OTHER: Results discussed with Dr. Cheung. IMPRESSION: No CT evidence of bowel obstruction, free intraperitoneal air or fluid. Small air bubble in the vagina, nonspecific. Newby catheter in the bladder. Oral contrast is only seen in the stomach which limits sensitivity for detection of colovesical/colov aginal fistula Splenomegaly COMMENT: Quality ID # [id number]: Final reports with documentation of one or more dose reduction techniques (e.g., Automated exposure control, adjustment of the mA and/or kV according to patient size, use of iterative reconstruction technique) TECHNICAL DOCUMENTATION: JOB ID: [id number] [employer]- All Rights Reserved Reading location - IP/workstation name: [facility]
--- NOTE | 2017-10-15 16:25 | PDOC H&P ---
History of Present Illness Admission Date/PCP: 10/14/17 01:09 NIRMAL PACHECO MD History of Present Illness: JESENIA NOVAK is a 57 year old female with a hx of admission on 10/13/17 for nausea , vomiting and uncontrolled diarrhea. Her diarrhea w/u has been negative so far. However, according to the nurses, as the patient underwent cleaning of her perineum, green stools were noted coming out of her vagina. 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 She underwent bladder suspension surgery with mesh 1.5 years ago but she reports only symptoms of persistent urine leakage, and she has not noted foul smell of her urinae pad or noted any stool particles. She has had a colonoscopy about 8 years ago and it was negative and an open appendectomy for perforated appendicitis at young age. Past Medical History Pulmonary Medical History: Reports: Chronic Obstructive Pulmonary Disease (COPD) Endocrine Medical History: Reports: Diabetes Mellitus Type 2 Psychiatric Medical History: Reports: Depression Past Surgical History Past Surgical History: Reports: Appendectomy, Orthopedic Surgery - R ankle, Tubal Ligation Social History Lives with: Family Smoking Status: Current Every Day Smoker - Advance Directive Resuscitation Status: Full Code Family History Family History: COPD Parental Family History Reviewed: Yes - COPD Children Family History Reviewed: No Sibling(s) Family History Reviewed.: No Medication/Allergy Home Medications: Aripiprazole [Abilify 5 mg Tablet] 5 mg PO DAILY 10/14/17 Aripiprazole [Abilify 5 mg Tablet] 5 mg PO DAILY 10/14/17 Canagliflozin [Invokana] 100 mg PO [id number] 10/14/17 Hum Insulin NPH/Reg Insulin Hm [Novolin 70-30 100 Unit/ml Vial] 75 unit SQ QHS 10/14/17 Hum Insulin NPH/Reg Insulin Hm [Novolin 70-30 100 Unit/ml Vial] 80 unit SQ QAM 10/14/17 Lorazepam [Ativan 1 mg Tablet] 1 mg PO Q8HP PRN 10/14/17 Lovastatin 40 mg PO WSUPPER 10/14/17 Metoprolol Tartrate [Lopressor 50 mg Tablet] 25 mg PO Q12 10/14/17 Omeprazole 20 mg PO DAILY 10/14/17 Pregabalin [Lyrica] 150 mg PO Q8 10/14/17 Sertraline HCl [Zoloft] 25 mg PO DAILY 10/14/17 Allergies/Adverse Reactions: morphine Allergy (Verified 12/21/16 18:30) Physical Exam Vital Signs: Temp Pulse Resp BP Pulse Ox 98.3 F 88 18 130/59 H 95 10/15/17 11:59 10/15/17 14:00 10/15/17 11:59 10/15/17 11:59 10/15/17 11:59 Intake & Output 10/14/17 10/15/17 10/16/17 06:59 06:59 06:59 Intake Total 620 4940 Output Total 300 3800 Balance 320 1140 Weight 103.2 kg 101.5 kg General appearance: PRESENT: no acute distress Head exam: PRESENT: atraumatic Eye exam: PRESENT: EOMI Mouth exam: PRESENT: moist Neck exam: PRESENT: full ROM Respiratory exam: PRESENT: clear to auscultation rosanna Cardiovascular exam: PRESENT: RRR GI/Abdominal exam: PRESENT: soft, other - obese, RLQ vertical paramedian scar Gentrourinary exam: PRESENT: other - speculum exam: uterine os normal, anterior effacing; vaginal fornices pink, alll 4 vaginal aponte are pink no evidence of lesions or stool particles, no smell appreciated Results Laboratory Results: 10/15/17 03:57 10/15/17 03:57 10/15/17 10/15/17 03:57 03:57 WBC 4.7 RBC 4.38 Hgb 8.5 L Hct 28.3 L MCV 65 L MCH 19.5 L MCHC 30.2 L RDW 20.3 H Plt Count 66 L Seg Neutrophils % 64.8 Lymphocytes % 26.7 Monocytes % 5.6 Eosinophils % 2.4 Basophils % 0.5 Absolute Neutrophils 3.1 Absolute Lymphocytes 1.3 Absolute Monocytes 0.3 Absolute Eosinophils 0.1 Absolute Basophils 0.0 Sodium 140.4 Potassium 4.5 Chloride 107 Carbon Dioxide 22 Anion Gap 11 BUN 15 Creatinine 0.92 Est GFR ( Amer) > 60 Est GFR (Non-Af Amer) > 60 Glucose 181 H Calcium 9.1 Impressions: Chest X-Ray 10/13/17 20:39 IMPRESSION: NO ACUTE RADIOGRAPHIC FINDING IN THE CHEST. Abdomen/Pelvis CT 10/15/17 08:00 IMPRESSION: No CT evidence of bowel obstruction, free intraperitoneal air or fluid. Small air bubble in the vagina, nonspecific. Newby catheter in the bladder. Oral contrast is only seen in the stomach which limits sensitivity for detection of colovesical/colovaginal fistula Splenomegaly Assessment & Plan - Diagnosis (1) Vomiting and diarrhea Is this a current diagnosis for this admission?: Yes - Plan Summary Plan Summary: A/ severe nausea, vomiting, and diarrhea of unknown cause Suspected recto-vaginal communication based on nurses observation CT scan A/P w/o contrast done yesterday does not reveal any pelvic injury or pathology (air in the bladder is secondary to Newby) UA is not very significant for presence of stools Patient past and present hx is no significant for recto-vaginal communication Pelvic exam is negative for lesions or stools in the vagina P/ I would send a urine sample for C&S If positive or there are still concerns, a Gynecology consultation would be appropriate Finally, a gastrographin lower GI or a CT scan lower GI should considered to confirm the diagnosis
[2017-10-15] MEDS ORDERED: LOPERAMIDE HCL 2 MG CAPSULE PO ONE (16:30)
[2017-10-15] MEDS: CYANOCOBALAMIN (VITAMIN B-12) INJ 1000 MCG/1 ML VIAL IM SCH (17:15)
[2017-10-15] MEDS ORDERED: NORMAL SALINE 1000 ML 1,000 ML IV PRN (18:11)
--- NOTE | 2017-10-15 18:17 | PDOC PROGRESS REPORT ---
Subjective Progress Note for:: 10/15/17 Subjective:: Patient is still complaining of diarrhea She has no fever no chest pains She was evaluated by general surgery for possible recto- vaginal fistula No has no fever no chills Reason For Visit: HYPOTENSION, ARF HYPERKALEMIA Physical Exam Vital Signs: Temp Pulse Resp BP Pulse Ox 98.5 F 97 18 122/54 L 100 10/15/17 16:00 10/15/17 16:00 10/15/17 16:00 10/15/17 16:00 10/15/17 16:00 Intake & Output 10/14/17 10/15/17 10/16/17 00:59 00:59 00:59 Intake Total 3810 3550 Output Total 2500 1600 Balance 1310 1950 Weight 103.2 kg 101.5 kg General appearance: PRESENT: no acute distress, well-developed, well-nourished Head exam: PRESENT: atraumatic, normocephalic Eye exam: PRESENT: conjunctiva pink, EOMI, PERRLA. ABSENT: scleral icterus Ear exam: PRESENT: normal external ear exam Mouth exam: PRESENT: moist, tongue midline Neck exam: ABSENT: carotid bruit, JVD, lymphadenopathy, thyromegaly Respiratory exam: PRESENT: clear to auscultation rosanna. ABSENT: rales, rhonchi, wheezes Cardiovascular exam: PRESENT: RRR. ABSENT: diastolic murmur, rubs, systolic murmur Pulses: PRESENT: normal dorsalis pedis pul GI/Abdominal exam: PRESENT: normal bowel sounds, soft. ABSENT: distended, guarding, mass, organolmegaly, rebound, tenderness Extremities exam: PRESENT: full ROM. ABSENT: calf tenderness, clubbing, pedal edema Neurological exam: PRESENT: alert, awake, oriented to person, oriented to place , oriented to time, oriented to situation, CN II-XII grossly intact. ABSENT: motor sensory deficit Results Laboratory Results: 10/15/17 03:57 10/15/17 03:57 10/15/17 10/15/17 03:57 03:57 WBC 4.7 RBC 4.38 Hgb 8.5 L Hct 28.3 L MCV 65 L MCH 19.5 L MCHC 30.2 L RDW 20.3 H Plt Count 66 L Seg Neutrophils % 64.8 Lymphocytes % 26.7 Monocytes % 5.6 Eosinophils % 2.4 Basophils % 0.5 Absolute Neutrophils 3.1 Absolute Lymphocytes 1.3 Absolute Monocytes 0.3 Absolute Eosinophils 0.1 Absolute Basophils 0.0 Sodium 140.4 Potassium 4.5 Chloride 107 Carbon Dioxide 22 Anion Gap 11 BUN 15 Creatinine 0.92 Est GFR ( Amer) > 60 Est GFR (Non-Af Amer) > 60 Glucose 181 H Calcium 9.1 Impressions: Chest X-Ray 10/13/17 20:39 IMPRESSION: NO ACUTE RADIOGRAPHIC FINDING IN THE CHEST. Abdomen/Pelvis CT 10/15/17 08:00 IMPRESSION: No CT evidence of bowel obstruction, free intraperitoneal air or fluid. Small air bubble in the vagina, nonspecific. Newby catheter in the bladder. Oral contrast is only seen in the stomach which limits sensitivity for detection of colovesical/colovaginal fistula Splenomegaly Assessment & Plan - Diagnosis (1) Acute renal failure Is this a current diagnosis for this admission?: Yes (2) Bandemia Is this a current diagnosis for this admission?: Yes (3) Gastroenteritis Is this a current diagnosis for this admission?: Yes (4) Hypotension Qualifiers: Hypotension type: unspecified hypotension type Qualified Code(s): I95.9 - Hypotension, unspecified Is this a current diagnosis for this admission?: Yes (5) Vomiting and diarrhea Is this a current diagnosis for this admission?: Yes Plan: Diarrhea is still persistent and profuse White blood cell was described on the Gram stain The stools were C. 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
[2017-10-15] MEDS ORDERED: CIPROFLOXACIN HCL 500 MG TABLET PO ONE (19:00)
[2017-10-15] MEDS: ATORVASTATIN CALCIUM 10 MG TABLET PO SCH ×2 (21:52→22:06)
[2017-10-15] MEDS: LORAZEPAM 1 MG TABLET PO PRN (22:06)
[2017-10-15] MEDS: ARIPIPRAZOLE 5 MG TABLET PO SCH (22:06)
[2017-10-15] MEDS: METRONIDAZOLE 500 MG TABLET PO SCH (22:06)
[2017-10-15] MEDS: ACETAMINOPHEN 325 MG TABLET PO PRN (22:12)
[2017-10-16] MEDS: HEPARIN SOD (PORCINE) 5,000 UNIT/ML 1 ML SYRINGE SUBCUT SCH (05:24)
[2017-10-16] MEDS: PREGABALIN 75 MG CAPSULE PO SCH (05:30)
[2017-10-16] MEDS: METRONIDAZOLE 500 MG TABLET PO SCH (05:30)
[2017-10-16] MEDS: LANSOPRAZOLE 15 MG TAB.RAP.DR PO SCH (05:30)
[2017-10-16] MEDS ORDERED: CIPROFLOXACIN HCL 500 MG TABLET PO SCH (06:00)
[2017-10-16] MEDS ORDERED: HUM INSULIN NPH/REG INSULIN HM 100 UNIT/1 ML 3 ML SUBCUT SCH (08:00)
[2017-10-16 08:01] VITALS: BP 150/67
[2017-10-16] MEDS: INSULIN LISPRO 100 UNIT/ML 3 ML VIAL SUBCUT PRN (08:39)
--- NOTE | 2017-10-16 08:45 | PDOC PROGRESS REPORT ---
Subjective Progress Note for:: 10/16/17 Subjective:: no c/o; patient denies any perineal or vaginal symptoms; diarrhea subsided Reason For Visit: HYPOTENSION, ARF HYPERKALEMIA Physical Exam Vital Signs: Temp Pulse Resp BP Pulse Ox 97.9 F 72 17 150/67 H 100 10/16/17 08:00 10/16/17 08:00 10/16/17 08:00 10/16/17 08:00 10/16/17 08:00 Intake & Output 10/15/17 10/16/17 10/17/17 06:59 06:59 06:59 Intake Total 4940 4070 Output Total 3800 5500 Balance 1140 -1430 Weight 101.5 kg 101.5 kg General appearance: PRESENT: no acute distress GI/Abdominal exam: PRESENT: soft Results Laboratory Results: 10/15/17 03:57 10/15/17 03:57 Impressions: Chest X-Ray 10/13/17 20:39 IMPRESSION: NO ACUTE RADIOGRAPHIC FINDING IN THE CHEST. Abdomen/Pelvis CT 10/15/17 08:00 IMPRESSION: No CT evidence of bowel obstruction, free intraperitoneal air or fluid. Small air bubble in the vagina, nonspecific. Newby catheter in the bladder. Oral contrast is only seen in the stomach which limits sensitivity for detection of colovesical/colovaginal fistula Splenomegaly Assessment & Plan - Diagnosis (1) Vomiting and diarrhea Is this a current diagnosis for this admission?: Yes - Plan Summary Plan Summary: A/ Negative pelvic exam yesterday No additional perinela symptoms reported by patient Urine clean P/ At this point, I believe that the patient does not suffers from rectovaginal fistula. I will sing off. Please, call me with questions.
[2017-10-16] MEDS: FLUCONAZOLE 100 MG TABLET PO SCH (09:11)
[2017-10-16] MEDS: NYSTATIN TOPICAL POWDER 15 GM TP SCH (09:11)
[2017-10-16] MEDS: SERTRALINE HCL 50 MG TABLET PO SCH (09:11)
[2017-10-16] MEDS: METOPROLOL TARTRATE 50 MG TABLET PO SCH (09:11)
--- NOTE | 2017-10-19 17:42 | PDOC DISCHARGE SUMMARY ---
General - Admit/Disc Date/PCP Admission Date/Primary Care Provider: 10/14/17 01:09 NIRMAL PACHECO MD Discharge Date: 10/16/17 - Discharge Diagnosis (1) Acute renal failure Is this a current diagnosis for this admission?: Yes (2) Bandemia Is this a current diagnosis for this admission?: Yes (3) Gastroenteritis Is this a current diagnosis for this admission?: Yes (4) Hypotension Is this a current diagnosis for this admission?: Yes (5) Vomiting and diarrhea Is this a current diagnosis for this admission?: Yes (6) Microcytic anemia Is this a current diagnosis for this admission?: Yes (7) Diabetes mellitus Is this a current diagnosis for this admission?: Yes (8) Madelyn infection of genital region Is this a current diagnosis for this admission?: Yes (9) Vitamin B12 deficiency Is this a current diagnosis for this admission?: Yes (10) Acute colitis Is this a current diagnosis for this admission?: Yes (11) Thrombocytopenia Is this a current diagnosis for this admission?: Yes (12) UTI (urinary tract infection) Is this a current diagnosis for this admission?: Yes - Additional Information Resuscitation Status: Full Code Discharge Diet: Diabetic Discharge Activity: Activity As Tolerated Prescriptions: Cefpodoxime Proxetil [Vantin 200 mg Tablet] 1 tab PO Q12 #10 tab Cyanocobalamin (Vitamin B-12) [Vitamin B-12] 1,000 mcg PO DAILY #30 tablet Fluconazole [Diflucan 100 mg Tablet] 100 mg PO DAILY #8 tablet Metronidazole [Flagyl 500 mg Tablet] 500 mg PO TID #15 tablet Nystatin [Mycostatin Topical Powder 15 gm] 1 applic TP BID #1 bottle Home Medications: Aripiprazole [Abilify 5 mg Tablet] 5 mg PO DAILY 10/14/17 Aripiprazole [Abilify 5 mg Tablet] 5 mg PO DAILY 10/14/17 Canagliflozin [Invokana] 100 mg PO ACBRKFST 10/14/17 Hum Insulin NPH/Reg Insulin Hm [Novolin 70-30 100 Unit/ml Vial] 75 unit SQ QHS 10/14/17 Hum Insulin NPH/Reg Insulin Hm [Novolin 70-30 100 Unit/ml Vial] 80 unit SQ QAM 10/14/17 Lorazepam [Ativan 1 mg Tablet] 1 mg PO Q8HP PRN 10/14/17 Lovastatin 40 mg PO WSUPPER 10/14/17 Metoprolol Tartrate [Lopressor 50 mg Tablet] 25 mg PO Q12 10/14/17 Omeprazole 20 mg PO DAILY 10/14/17 Pregabalin [Lyrica] 150 mg PO Q8 10/14/17 Sertraline HCl [Zoloft] 25 mg PO DAILY 10/14/17 Cefpodoxime Proxetil [Vantin 200 mg Tablet] 1 tab PO Q12 #10 tab 10/16/17 Cyanocobalamin (Vitamin B-12) [Vitamin B-12] 1,000 mcg PO DAILY #30 tablet 10/16 Fluconazole [Diflucan 100 mg Tablet] 100 mg PO DAILY #8 tablet 10/16/17 Metronidazole [Flagyl 500 mg Tablet] 500 mg PO TID #15 tablet 10/16/17 Nystatin [Mycostatin Topical Powder 15 gm] 1 applic TP BID #1 bottle 10/16/17 History of Present Illness Patient complains of: Vomiting and diarrhea History of Present Illness: JESENIA NOVAK is a 57 year old female past medical history of COPD, hypertension, dyslipidemia, diabetes and chronic pain. Patient presents with 48 hours of nausea vomiting diarrhea without blood. Denies fever chills chest pain or shortness of breath. No recent new medications, suspect meals, infectious contacts. In the emergency room she is found to have hypotension, bandemia and acute renal failure. Urinalysis, chest x-ray and CT abdomen are negative for acute findings. Patient is currently asymptomatic she is received 3 L of normal saline and referred to the hospitalist for admission Hospital Course Hospital Course: (1) Acute renal failure Patient presented with vomiting and diarrhea On admission she was in acute renal failure with a creatinine of 2.1 likely secondary to dehydration Renal function improved during her hospital stay with IV fluids Discharge patient's renal function was normal 10/13/17 10/14/17 10/15/17 19:15 05:43 03:57 Creatinine 2.15 H 1.36 H 0.92 (2) Hypotension Patient was hypotensive on admission likely secondary to dehydration Blood pressure was normal at time of discharge Selected Entries 10/13/17 10/14/17 10/15/17 19:00 03:16 08:00 Blood Pressure 88/45 L 99/58 L 141/75 H [Upper Arm] 10/15/17 10/15/1710/16/18 11:59 16:00 00:00 Blood Pressure 130/59 H 122/54 L 130/62 H [Upper Arm] 10/16/17 10/16/17 10/16/17 04:00 08:00 10:38 Blood Pressure 142/69 H 150/67 H 150/67 H [Upper Arm] (3) Vomiting and diarrhea Diarrhea was profuse initially White blood cell was described on the Gram stain The stools were C. difficile negative Will initiate Cipro and Flagyl and treat patient empirically as colitis Patient received 1 dose of Imodium Diarrhea improved Patient today was discharged on Ceftin and Flagyl with a diagnosis of an acute colitis (4) Microcytic anemia, thrombocytopenia Patient was found to be extremely B12 deficient with a B12 level of around 200 B12 was replaced a.m. during hospital stay Patient was discharged on p.o. replacement We would suggest that patient has a CBC drawn in a couple weeks Referral to hematology may be needed if thrombocytopenia and anemia persist 10/13/17 10/14/17 10/14/17 19:15 05:43 05:43 Hgb 11.6 L 9.2 L D Plt Count 147 L 73 L Iron 42.4 TIBC 431 % Saturation 10 Ferritin 8.16 L Vitamin B12 265.0 Folate 6.80 10/15/17 03:57 Hgb 8.5 L Plt Count 66 L Iron TIBC % Saturation Ferritin Vitamin B12 Folate (5) Madelyn infection of genital region Patient was treated with fluconazole and nystatin (6) there was no evidence of recto vaginal fistula Nursing staff had noticed stools coming out of the vagina Patient had full examination by general surgeon and there was no evidence of fistula on physical examination Further test should be scheduled if presence of a fistula is suspected again Physical Exam Vital Signs: Temp Pulse Resp BP Pulse Ox 97.9 F 72 17 150/67 H 100 10/16/17 10:38 10/16/17 10:38 10/16/17 10:38 10/16/17 10:38 10/16/17 10:38 General appearance: PRESENT: no acute distress, well-developed, well-nourished Head exam: PRESENT: atraumatic, normocephalic Eye exam: PRESENT: conjunctiva pink, EOMI, PERRLA. ABSENT: scleral icterus Ear exam: PRESENT: normal external ear exam Mouth exam: PRESENT: moist, tongue midline Neck exam: ABSENT: carotid bruit, JVD, lymphadenopathy, thyromegaly Respiratory exam: PRESENT: clear to auscultation [place]. ABSENT: rales, rhonchi, wheezes Cardiovascular exam: PRESENT: RRR. ABSENT: diastolic murmur, rubs, systolic murmur Pulses: PRESENT: normal dorsalis pedis pul GI/Abdominal exam: PRESENT: normal bowel sounds, soft. ABSENT: distended, guarding, mass, organolmegaly, rebound, tenderness Extremities exam: PRESENT: full ROM. ABSENT: calf tenderness, clubbing, pedal edema Neurological exam: PRESENT: alert, awake, oriented to person, oriented to place , oriented to time, oriented to situation, CN II-XII grossly intact. ABSENT: motor sensory deficit Results Laboratory Results: 10/15/17 03:57 10/15/17 03:57 Impressions: Chest X-Ray 10/13/17 20:39 IMPRESSION: NO ACUTE RADIOGRAPHIC FINDING IN THE CHEST. Abdomen/Pelvis CT 10/15/17 08:00 IMPRESSION: No CT evidence of bowel obstruction, free intraperitoneal air or fluid. Small air bubble in the vagina, nonspecific. Newby catheter in the bladder. Oral contrast is only seen in the stomach which limits sensitivity for detection of colovesical/colovaginal fistula Splenomegaly Qualifiers - * PATEINT BEING DISCHARGED WITH ANY OF THE FOLLOWING DIAGNOSIS?: No
== END 2017-10-16 11:26 | disposition home or self-care (01) | DRG 683 ==
LOC: ER 18:47 → EH 10-14 01:09 → 5 10-14 02:40
PROVIDERS: ADMIT Internal Medicine; ATTEND Internal Medicine
PROC: 3E0F73Z Introduction of Anti-inflammatory into Respiratory Tract, Via Natural or Artificial Opening (ICD-10-PCS; principal; 2017-10-14)
DX: N17.9 Acute kidney failure, unspecified (principal); B37.49 Other urogenital candidiasis; N39.0 Urinary tract infection, site not specified; K52.9 Noninfective gastroenteritis and colitis, unspecified; I95.9 Hypotension, unspecified; D50.9 Iron deficiency anemia, unspecified; E11.9 Type 2 diabetes mellitus without complications; E53.8 Deficiency of other specified B group vitamins; D69.6 Thrombocytopenia, unspecified; J44.9 Chronic obstructive pulmonary disease, unspecified; I10 Essential (primary) hypertension; E78.00 Pure hypercholesterolemia, unspecified; G89.29 Other chronic pain; E86.0 Dehydration; F32.9 Major depressive disorder, single episode, unspecified; F17.210 Nicotine dependence, cigarettes, uncomplicated; E66.9 Obesity, unspecified; Z68.33 Body mass index [BMI] 33.0-33.9, adult; Z79.4 Long term (current) use of insulin; Z79.899 Other long term (current) drug therapy; Z88.6 Allergy status to analgesic agent; Z83.6 Family history of other diseases of the respiratory system
CPT/HCPCS: 36415; 51702; 71045; 74176; 80048; 80053; 80307; 81001; 82272; 82533; 82550; 82607; 82728; 82746; 82803; 82962; 83036; 83540; 83550; 83605; 83690; 84443; 84484; 85025; 85045; 85652; 87040; 87045; 87086; 87088; 87186; 87205; 87210; 87491; 87493; 87591; 93005; 93010; 96361; 96374; 99285; J1644; J1815; J2405; J3420; J3490; J7030

== ENCOUNTER 2018-06-17 18:50 | Emergency (ER) | payer MEDICARE ==
--- NOTE | 2018-06-17 19:24 | ER Document Report ---
ED Medical Screen (RME) - General Chief Complaint: Ankle Pain Stated Complaint: RIGHT ANKLE/FOOT PAIN Time Seen by Provider: 06/17/18 19:19 Mode of Arrival: Ambulatory Information source: Patient Notes: 58-year-old female with type 2 diabetes, RSD presents with complaint of right ankle pain and swelling that started 4 days prior to arrival. Patient denies any recent injury. She does report a fracture of the right ankle 20 years ago after a fall which required surgery and fixation. I have greeted and performed a rapid initial assessment of this patient. A comprehensive ED assessment and evaluation of the patient, analysis of test results and completion of medical decision making process we will be contacted by additional ED providers. PHYSICAL EXAMINATION: Vital signs reviewed-within normal limits GENERAL: Well-appearing, well-nourished and in no acute distress. LUNGS: No respiratory distress Musculoskeletal: Right ankle swelling, tender to palpation diffusely. NEUROLOGICAL: Normal speech, PSYCH: Normal mood, normal affect. SKIN: Warm, Dry, normal turgor, no rashes or lesions noted. TRAVEL OUTSIDE OF THE [place] IN LAST 30 DAYS: No - HPI Onset: Other Onset/Duration: Persistent Quality of pain: Throbbing Severity: Moderate Associated Symptoms: denies: Chest pain, Fever, Shortness of breath Exacerbated by: Movement, Walking Relieved by: Denies Similar symptoms previously: Yes Recently seen / treated by doctor: No - Related Data Smoking: Cigarettes Frequency of alcohol use: None Drug Abuse: None Allergies/Adverse Reactions: morphine Allergy (Verified 12/21/16 18:30) Past Medical History Pulmonary Medical History: Reports: Hx COPD Endocrine Medical History: Reports: Hx Diabetes Mellitus Type 1, Hx Diabetes Mellitus Type 2 Renal/ Medical History: Denies: Hx Peritoneal Dialysis Psychiatric Medical History: Reports: Hx Depression Past Surgical History: Reports: Hx Appendectomy, Hx Orthopedic Surgery - R ankle , Hx Tubal Ligation - Immunizations History of Influenza Vaccine for 03/2017 - 08/2017 Season: Unknown Physical Exam - Vital signs Vitals: Temp Pulse Resp BP Pulse Ox 98.2 F 77 16 138/57 H 96 06/17/18 19:15 06/17/18 19:15 06/17/18 19:15 06/17/18 19:15 06/17/18 19:15 Course - Vital Signs Vital signs: Temp Pulse Resp BP Pulse Ox 98.2 F 77 16 138/57 H 96 06/17/18 19:15 06/17/18 19:15 06/17/18 19:15 06/17/18 19:15 06/17/18 19:15 Doctor's Discharge - Discharge Referrals: NIRMAL PACHECO MD [Primary Care Provider] - Follow up as needed
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
--- NOTE | 2018-06-17 20:27 | RADIOLOGY REPORT (SQ) ---
EXAM DESCRIPTION: ANKLE RIGHT COMPLETE COMPLETED DATE/TIME: 06/17/2018 8:15 pm REASON FOR STUDY: PAIN/SWELLING COMPARISON: None. NUMBER OF VIEWS: Three views. TECHNIQUE: AP, lateral, and oblique radiographic images acquired of the right ankle. LIMITATIONS: None. FINDINGS: MINERALIZATION: Normal. BONES: No acute fracture or dislocation. No worrisome bone lesions. Hardware present appears intact . Mild degenerative changes of the tibiotalar joint. JOINTS: No effusions. SOFT TISSUES: No soft tissue swelling. No foreign body. OTHER: No other significant finding. IMPRESSION: Degenerative changes and surgical changes without acute fracture. TECHNICAL DOCUMENTATION: JOB ID: [id number] [employer]- All Rights Reserved Reading location - IP/workstation name: [email or web address]
--- NOTE | 2018-06-17 20:29 | RADIOLOGY REPORT (SQ) ---
EXAM DESCRIPTION: FOOT RIGHT COMPLETE COMPLETED DATE/TIME: 06/17/2018 8:15 pm REASON FOR STUDY: right foot pain COMPARISON: None. NUMBER OF VIEWS: Three views. TECHNIQUE: AP, lateral and oblique radiographic images acquired of the right foot. LIMITATIONS: None. FINDINGS: MINERALIZATION: Normal. BONES: No acute fracture or dislocation. No worrisome bone lesions. JOINTS: No effusions. SOFT TISSUES: No soft tissue swelling. No foreign body. OTHER: No other significant finding. IMPRESSION: NEGATIVE STUDY OF THE RIGHT FOOT. NO RADIOGRAPHIC EVIDENCE OF ACUTE INJURY. TECHNICAL DOCUMENTATION: JOB ID: [id number] [employer]- All Rights Reserved Reading location - IP/workstation name: [email or web address]
[2018-06-17 22:08] VITALS: BP 152/65
== END 2018-06-17 21:50 | disposition home or self-care (01) ==
LOC: ER 18:50
DX: S90.01XA Contusion of right ankle, initial encounter (principal); S90.31XA Contusion of right foot, initial encounter; W22.8XXA Striking against or struck by other objects, initial encounter; Y92.009 Unspecified place in unspecified non-institutional (private) residence as the place of occurrence of the external cause; F17.210 Nicotine dependence, cigarettes, uncomplicated; J44.9 Chronic obstructive pulmonary disease, unspecified; E11.9 Type 2 diabetes mellitus without complications; Z88.5 Allergy status to narcotic agent
CPT/HCPCS: 99283

== ENCOUNTER 2018-07-14 00:08 | Emergency (ER) | payer MEDICARE ==
[2018-07-14] MEDS ORDERED: NORMAL SALINE 1000 ML 1,000 ML IV ONE ×2 (00:40)
--- NOTE | 2018-07-14 00:45 | ER Document Report ---
ED Blood Sugar Problem - General Chief Complaint: High Blood Sugar Stated Complaint: SUGAR LEVEL ISSUES Time Seen by Provider: 07/14/18 00:29 Notes: Patient is a 58-year-old female that comes to the emergency department for chief complaint of elevated blood sugar. She states that she took the last of her insulin yesterday (Saturday), states that she went to the pharmacy but it was closed, has not been unable to get into her pharmacy this weekend, states that she started feeling worse tonight with vague blurry vision and strange sensation. She denies nausea, vomiting, dizziness, chest pain, shortness of breath, fever/chills. TRAVEL OUTSIDE OF THE [place] IN LAST 30 DAYS: No - Related Data Allergies/Adverse Reactions: morphine Allergy (Verified 12/21/16 18:30) Past Medical History - General Information source: Patient - Social History Smoking Status: Never Smoker Frequency of alcohol use: None Drug Abuse: None Lives with: Family Family History: COPD Pulmonary Medical History: Reports: Hx COPD Endocrine Medical History: Reports: Hx Diabetes Mellitus Type 2 Renal/ Medical History: Denies: Hx Peritoneal Dialysis Psychiatric Medical History: Reports: Hx Depression Past Surgical History: Reports: Hx Appendectomy, Hx Orthopedic Surgery - R ankle, Hx Tubal Ligation - Immunizations Immunizations up to date: Yes Hx Diphtheria, Pertussis, Tetanus Vaccination: Yes Review of Systems - Review of Systems Constitutional: See HPI EENT: No symptoms reported Cardiovascular: No symptoms reported Respiratory: No symptoms reported Gastrointestinal: No symptoms reported Genitourinary: No symptoms reported Female Genitourinary: No symptoms reported Musculoskeletal: No symptoms reported Skin: No symptoms reported Hematologic/Lymphatic: No symptoms reported Neurological/Psychological: No symptoms reported Physical Exam - Vital signs Vitals: Temp Pulse Resp BP Pulse Ox 98.4 F 76 16 156/66 H 97 07/14/18 00:25 07/14/18 00:25 07/14/18 00:25 07/14/18 00:25 07/14/18 00:25 - Notes Notes: GENERAL: Alert, interacts well. No acute distress. HEAD: Normocephalic, atraumatic. EYES: Pupils equal, round, and reactive to light. Extraocular movements intact. ENT: Oral mucosa moist, tongue midline. Oropharynx unremarkable. Airway patent. Nares patent, no nasal septal hematoma, TM's intact. NECK: Full range of motion. Supple. Trachea midline. LUNGS: Clear to auscultation bilaterally, no wheezes, rales, or rhonchi. No respiratory distress. HEART: Regular rate and rhythm. No murmur ABDOMEN: Soft, non-tender. Non-distended. Bowel sounds present in all 4 quadrants. GENITOURINARY: Deferred EXTREMITIES: Moves all 4 extremities spontaneously. No edema, normal radial and dorsalis pedis pulses bilaterally. No cyanosis. BACK: no cervical, thoracic, lumbar midline tenderness. No saddle anesthesia, normal distal neurovascular exam. NEUROLOGICAL: Alert and oriented x3. Normal speech. [cranial nerves II through XII grossly intact]. PSYCH: Normal affect, normal mood. SKIN: Warm, dry, normal turgor. No rashes or lesions noted. Course - Re-evaluation Re-evalutation: Patient states she feels great after she was given IV fluids. Vital signs unremarkable. Patient very well-appearing. She did not have any current symptoms other than vague ones on initial presentation. Blood gas unremarkable, chemistry unremarkable except for mild hyponatremia, anion gap, bicarbonate, pH are unremarkable. Urinalysis showing glucose, some white blood cells. No urinary symptoms. Culture was placed. Treating with insulin. On initial recheck glucose is downtrending nicely. Patient is asking to leave. She has a prescription and will fill it in the morning for her home medications. Patient discharged with follow-up instructions and return precautions which were discussed. Patient states understanding and agreement. - Vital Signs Vital signs: Temp Pulse Resp BP Pulse Ox 98.7 F 76 17 133/58 H 94 07/14/18 03:14 07/14/18 00:25 07/14/18 03:14 07/14/18 03:14 07/14/18 03:14 - Laboratory Result Diagrams: 07/14/18 00:57 Laboratory results interpreted by me: 07/14/18 07/14/18 07/14/18 00:57 01:39 02:58 Sodium 135.7 L Glucose 476 H* POC Glucose 399 H Urine Glucose (UA) >=500 H Ur Leukocyte Esterase MODERATE H Discharge - Discharge Clinical Impression: Hyperglycemia Condition: Stable Disposition: HOME, SELF-CARE Additional Instructions: Fill and take your regular insulin prescription. Follow-up with your primary care for additional management of diabetes. Return if you worsen including lightheadedness, nausea, vomiting, fever, or any other concerning or worsening symptoms. Forms: Elevated Blood Pressure
[2018-07-14 01:08] LABS: VENOUS BLOOD BASE EXCESS 0.8 mmol/L; VENOUS BLOOD HCO3 27.6 mmol/L (20-32); VENOUS BLOOD PCO2 55.5 mmHg (35-63); VENOUS BLOOD PH 7.32 (7.30-7.42)
[2018-07-14 01:49] LABS: ANION GAP 9 (5-19); BLOOD UREA NITROGEN 14 mg/dL (7-20); CALCIUM 9.3 mg/dL (8.4-10.2); CARBON DIOXIDE 27 mmol/L (22-30); CHLORIDE 100 mmol/L (98-107); POTASSIUM 4.8 mmol/L (3.6-5.0); SODIUM 135.7 mmol/L (137-145)
[2018-07-14 01:55] LABS: APPEARANCE,URINE CLEAR; BILIRUBIN,URINE NEGATIVE (NEGATIVE); COLOR,URINE STRAW; GLUCOSE, URINE >=500 mg/dL (NEGATIVE); KETONES,URINE NEGATIVE (NEGATIVE); LEUKOCYTE ESTERASE,URINE MODERATE (NEGATIVE); NITRITE,URINE NEGATIVE (NEGATIVE); PROTEIN,URINE NEGATIVE (NEGATIVE); URINE SPECIFIC GRAVITY 1.018; UROBILINOGEN,URINE NEGATIVE mg/dL (<2.0)
[2018-07-14 01:58] LABS: GLUCOSE 476 mg/dL (75-110)
[2018-07-14] MEDS ORDERED: INSULIN REG, HUMAN 100 UNIT/ML 3 ML VIAL (PYX) SUBCUT ONE (02:12)
[2018-07-14 03:22] VITALS: BP 133/58
== END 2018-07-14 03:38 | disposition home or self-care (01) ==
LOC: ER 00:08
DX: E11.65 Type 2 diabetes mellitus with hyperglycemia (principal); Z79.4 Long term (current) use of insulin; J44.9 Chronic obstructive pulmonary disease, unspecified; H53.8 Other visual disturbances; E87.6 Hypokalemia; Z88.5 Allergy status to narcotic agent
CPT/HCPCS: 99283; 96360; 36415; 87086; 82962; 87088; 80048; 81001; 82803; A9270; J7030; J1815

== ENCOUNTER → 2018-08-04 | Outpatient (CLI) | payer MEDICARE ==
[2018-08-04 11:31] LABS: ABSOLUTE BASOPHILS # (AUTO) 0.1 10^3/uL (0.0-0.2); ABSOLUTE EOSINOPHILS # (AUTO) 0.1 10^3/uL (0.0-0.6); ABSOLUTE LYMPHOCYTES (AUTO) 1.1 10^3/uL (0.5-4.7); ABSOLUTE MONOCYTES (AUTO) 0.2 10^3/uL (0.1-1.4); ABSOLUTE NEUT (AUTO) 3.7 10^3/uL (1.7-8.2); EOSINOPHILS % (AUTO) 2.3 % (0-6); HEMATOCRIT 30.1 % (36.0-47.0); HEMOGLOBIN 9.2 g/dL (12.0-15.5); LYMPHOCYTES % (AUTO) 20.7 % (13-45); MEAN CORPUSCULAR HEMOGLOBIN 19.2 pg (27.0-33.4); MEAN CORPUSCULAR HGB CONC 30.4 g/dL (32.0-36.0); MONOCYTES % (AUTO) 3.8 % (3-13); RED BLOOD COUNT 4.76 10^6/uL (3.72-5.28); RED CELL DISTRIBUTION WIDTH 20.1 % (11.5-14.0); SEGMENTED NEUTROPHILS % (AUTO) 72.2 % (42-78); TOTAL CELLS COUNTED % (AUTO) 100 %; WHITE BLOOD COUNT 5.2 10^3/uL (4.0-10.5)
[2018-08-04 11:45] LABS: ALANINE AMINOTRANSFERASE 10 U/L (9-52); ALBUMIN 4.2 g/dL (3.5-5.0); ALKALINE PHOSPHATASE 129 U/L (38-126); ANION GAP 12 (5-19); ASPARTATE AMINO TRANSFERASE 17 U/L (14-36); BILIRUBIN,DIRECT 0.3 mg/dL (0.0-0.4); BILIRUBIN,TOTAL 0.6 mg/dL (0.2-1.3); BLOOD UREA NITROGEN 12 mg/dL (7-20); CALCIUM 9.2 mg/dL (8.4-10.2); CARBON DIOXIDE 26 mmol/L (22-30); CHLORIDE 104 mmol/L (98-107); GLUCOSE 198 mg/dL (75-110); POTASSIUM 4.3 mmol/L (3.6-5.0); SODIUM 141.9 mmol/L (137-145); TOTAL PROTEIN 7.6 g/dL (6.3-8.2); TRIGLYCERIDES 126 mg/dL (<150); URIC ACID 3.7 mg/dL (2.5-7.5)
[2018-08-04 11:56] LABS: DIRECT LDL 130 mg/dL (<100)
[2018-08-04 12:15] LABS: MEAN CORPUSCULAR VOLUME 63 fl (80-97)
[2018-08-04 12:19] LABS: ANISOCYTOSIS 2+; HYPOCHROMASIA 2+; OVALOCYTES 1+; PLATELET COMMENT DECREASED; PLATELET ESTIMATE 115 10^3/uL (150-450); PLATELET LARGE PRESENT; POIKILOCYTOSIS 1+; POLYCHROMASIA SLIGHT; TEAR DROP CELLS SLIGHT
[2018-08-05 11:39] LABS: CREATININE URINE 77.5 mg/dL (Not Estab.); MICROALBUMIN URINE 175.1 ug/mL (Not Estab.)
[2018-08-05 14:47] LABS: PATH REVIEW PATHOLOGIST REVIEWED
== END ==
LOC: OD 10:41
PROVIDERS: ATTEND Family Medicine Geriatric Medicine
DX: E11.8 Type 2 diabetes mellitus with unspecified complications (principal); I10 Essential (primary) hypertension; E78.5 Hyperlipidemia, unspecified; Z79.899 Other long term (current) drug therapy
CPT/HCPCS: 36415; 80053; 80061; 82043; 82570; 84443; 84550; 85025

== ENCOUNTER 2018-08-07 22:47 | Emergency (ER) | payer MEDICARE ==
[2018-08-08] MEDS ORDERED: METOCLOPRAMIDE HCL INJ/PF 10 MG/2 ML SDV IV ONE (00:45)
[2018-08-08] MEDS ORDERED: NORMAL SALINE 1000 ML 1,000 ML IV ONE ×2 (00:54→02:20)
[2018-08-08 01:21] LABS: HEMATOCRIT 35.2 % (36.0-47.0); HEMOGLOBIN 10.5 g/dL (12.0-15.5); MEAN CORPUSCULAR HEMOGLOBIN 19.1 pg (27.0-33.4); MEAN CORPUSCULAR HGB CONC 29.8 g/dL (32.0-36.0); MEAN CORPUSCULAR VOLUME 64 fl (80-97); PLATELET COUNT 109 10^3/uL (150-450); RED CELL DISTRIBUTION WIDTH 20.3 % (11.5-14.0); WHITE BLOOD COUNT 5.4 10^3/uL (4.0-10.5)
[2018-08-08 01:30] LABS: ALANINE AMINOTRANSFERASE 21 U/L (9-52); ALBUMIN 4.5 g/dL (3.5-5.0); ALKALINE PHOSPHATASE 119 U/L (38-126); ANION GAP 15 (5-19); ASPARTATE AMINO TRANSFERASE 16 U/L (14-36); BILIRUBIN,DIRECT 0.2 mg/dL (0.0-0.4); BILIRUBIN,TOTAL 1.5 mg/dL (0.2-1.3); BLOOD UREA NITROGEN 20 mg/dL (7-20); CALCIUM 9.3 mg/dL (8.4-10.2); CARBON DIOXIDE 22 mmol/L (22-30); CHLORIDE 98 mmol/L (98-107); GLUCOSE 399 mg/dL (75-110); LIPASE 87.3 U/L (23-300); POTASSIUM 4.6 mmol/L (3.6-5.0); SODIUM 135.3 mmol/L (137-145); TOTAL PROTEIN 7.9 g/dL (6.3-8.2)
[2018-08-08 01:36] LABS: ABSOLUTE LYMPHOCYTES# (MANUAL) 0.8 10^3/uL (0.5-4.7); ABSOLUTE MONOCYTES # (MANUAL) 0.5 10^3/uL (0.1-1.4); BASOPHILS % (MANUAL) 0 % (0-2); EOSINOPHILS % (MANUAL) 1 % (0-6); LYMPHOCYTES % (MANUAL) 15 % (13-45); MONOCYTES % (MANUAL) 10 % (3-13); SEGMENTED NEUTROPHILS % (MAN) 74 % (42-78); TOTAL CELLS COUNTED 100
[2018-08-08 01:41] LABS: HYPOCHROMASIA 1+; TOXIC GRANULATION SLIGHT
[2018-08-08 01:42] LABS: ANISOCYTOSIS 2+; PLATELET COMMENT DECREASED; POIKILOCYTOSIS SLIGHT
[2018-08-08] MEDS ORDERED: INSULIN REG, HUMAN 100 UNIT/ML 3 ML VIAL (PYX) SUBCUT ONE (03:53)
[2018-08-08] MEDS ORDERED: OXYCODONE HCL IR 5 MG TABLET PO ONE (03:54)
[2018-08-08] MEDS ORDERED: NORMAL SALINE 500 ML IV ONE (03:54)
--- NOTE | 2018-08-08 03:57 | ER Document Report ---
ED General - General Chief Complaint: Nausea/Vomiting/Diarrhea Stated Complaint: NAUSEA,VOMITING,BACK PAIN Time Seen by Provider: 08/08/18 00:40 Primary Care Provider: JULIAN LAY MD [Primary Care Provider] - 08/11/18 Notes: Patient is 58-year-old female presents with complaint of nausea vomiting and diarrhea. Started around 8 AM yesterday. No sick contacts. No fevers. No blood in emesis. No blood in the stool. She says initially her stools just watery and now is more greenish. She initially has abdominal pain that has since resolved. She says her nausea vomiting is resolved with Reglan. Her only other complaint is that she has RSD which affects her feet. She says that occasionally she will get severe pain in her feet she started get pain now. She usually takes oxycodone 15 mg for this. TRAVEL OUTSIDE OF THE [place] IN LAST 30 DAYS: No - Related Data Allergies/Adverse Reactions: morphine Allergy (Verified 12/21/16 18:30) Past Medical History - Social History Smoking Status: Current Every Day Smoker Frequency of alcohol use: None Drug Abuse: None Family History: Reviewed & Not Pertinent, COPD Patient has suicidal ideation: No Patient has homicidal ideation: No Pulmonary Medical History: Reports: Hx COPD Endocrine Medical History: Reports: Hx Diabetes Mellitus Type 1, Hx Diabetes Mellitus Type 2 Renal/ Medical History: Denies: Hx Peritoneal Dialysis Psychiatric Medical History: Reports: Hx Depression Past Surgical History: Reports: Hx Appendectomy, Hx Orthopedic Surgery - R ankle, Hx Tubal Ligation - Immunizations Immunizations up to date: Yes Hx Diphtheria, Pertussis, Tetanus Vaccination: Yes Review of Systems - Review of Systems Notes: My Normal Review Basic REVIEW OF SYSTEMS: CONSTITUTIONAL : Denies fever, chills, or sweats. Denies recent illness. EENT: Denies eye, ear, throat, or mouth pain or symptoms. Denies nasal or sinus congestion. RESPIRATORY: Denies cough, cold, or chest congestion. Denies shortness of breath, difficulty breathing, or wheezing. GASTROINTESTINAL: Abdominal pain. Vomiting. Diarrhea. GENITOURINARY: Denies difficulty urinating, painful urination, burning, frequency, or blood in urine. MUSCULOSKELETAL: Denies neck or back pain or joint pain or swelling. SKIN: Denies rash or skin lesions. NEUROLOGICAL: Denies altered mental status or loss of consciousness. Denies headache. Denies weakness or paralysis or loss of use of either side. Denies problems with gait or speech. Denies sensory or motor loss. ALL OTHER SYSTEMS REVIEWED AND NEGATIVE. Physical Exam - Vital signs Vitals: Temp Pulse Resp BP Pulse Ox 100.0 F 114 H 16 99/52 L 95 08/07/18 23:13 08/07/18 23:13 08/07/18 23:13 08/07/18 23:13 08/07/18 23:13 - Notes Notes: General Appearance: Well nourished, alert, cooperative, no acute distress, mild obvious discomfort. Vitals: reviewed, See vital signs table. Head: no swelling or tenderness to the head Eyes: PERRL, EOMI, Conjuctiva clear Mouth: No decreasd moisture Lungs: No wheezing, No rales, No rhonci, No accessory muscle use, good air exchange bilaterally. Heart: Normal rate, Regular rythm, No murmur, no rub Abdomen: Normal BS, soft, No rigidity, No reproducible abdominal tenderness to palpation, No guarding, no rebound, no abdominal masses, no organomegaly Extremities: strength 5/5 in all extremities, good pulses in all extremities, no swelling or tenderness in the extremities, no edema. Skin: warm, dry, appropriate color, no rash Neuro: speech clear, oriented x 3, normal affect, responds appropriately to questions. Course - Re-evaluation Re-evalutation: 08/08/18 05:16 Patient's nausea vomiting diarrhea have improved. I feel she is safe to be discharged home. I informed her she still may have some diarrhea over the next day or so. I informed her goals to keep her nausea and vomiting under control so that she can stay well-hydrated. She looks well. She is feeling improved. She has no current abdominal pain. I feel she safe to be discharged home. I strongly encouraged her to return to ER if she has fevers, abdominal pain, recurrent vomiting, or any blood in her stool. Patient agrees with plan will be discharged home. Dictation of this chart was performed using voice recognition software; therefore, there may be some unintended grammatical errors. - Vital Signs Vital signs: Temp Pulse Resp BP Pulse Ox 98.4 F 97 14 106/58 L 96 08/08/18 05:48 08/08/18 05:48 08/08/18 05:48 08/08/18 05:48 08/08/18 05:48 - Laboratory Result Diagrams: 08/08/18 00:50 08/08/18 00:50 Laboratory results interpreted by me: 08/08/18 08/08/18 08/08/18 00:50 00:50 05:30 RBC 5.50 H Hgb 10.5 L Hct 35.2 L MCV 64 L MCH 19.1 L MCHC 29.8 L RDW 20.3 H Plt Count 109 L Sodium 135.3 L Creatinine 2.01 H Est GFR ( Amer) 31 L Est GFR (Non-Af Amer) 25 L Glucose 399 H POC Glucose 302 H Total Bilirubin 1.5 H Discharge - Discharge Clinical Impression: Vomiting and diarrhea Condition: Good Disposition: HOME, SELF-CARE Additional Instructions: Please follow up closely with your primary care physician. Call his office on Saturday to make a close follow up appointment. Please return to the ER immediately if you develop fevers, intractable vomiting, bloody stools, abdominal pain, or feel that you are worsening in any way. Prescriptions: Ondansetron [Zofran Odt 4 mg Tablet] 1 tab PO Q4H PRN #15 tab.rapdis PRN Reason: For Nausea/Vomiting Forms: Return to Work Referrals: JULIAN LAY MD [Primary Care Provider] - 08/11/18
[2018-08-08] MEDS ORDERED: ONDANSETRON ODT 4 MG TAB (6 TAB/ER DISP) PO PRN (05:19)
[2018-08-08 05:48] VITALS: BP 106/58
== END 2018-08-08 05:48 | disposition home or self-care (01) ==
LOC: ER 22:47
DX: R11.2 Nausea with vomiting, unspecified (principal); R19.7 Diarrhea, unspecified; E11.9 Type 2 diabetes mellitus without complications; F17.200 Nicotine dependence, unspecified, uncomplicated; Z88.6 Allergy status to analgesic agent; Z98.51 Tubal ligation status
CPT/HCPCS: 99284; 96361; 96374; 36415; 82962; 83690; 85025; 80053; J2765; A9270 ×2; J7030; J7040; J1815

== ENCOUNTER 2018-08-31 20:52 | Inpatient (IN) | payer MEDICARE ==
[2018-08-31 21:59] LABS: HEMATOCRIT 24.9 % (36.0-47.0); MEAN CORPUSCULAR HGB CONC 29.6 g/dL (32.0-36.0); MEAN CORPUSCULAR VOLUME 64 fl (80-97); RED BLOOD COUNT 3.88 10^6/uL (3.72-5.28); RED CELL DISTRIBUTION WIDTH 20.5 % (11.5-14.0); WHITE BLOOD COUNT 8.4 10^3/uL (4.0-10.5)
[2018-08-31 22:10] LABS: ALANINE AMINOTRANSFERASE 18 U/L (9-52); ALBUMIN 3.8 g/dL (3.5-5.0); ALKALINE PHOSPHATASE 94 U/L (38-126); ANION GAP 9 (5-19); ASPARTATE AMINO TRANSFERASE 21 U/L (14-36); BILIRUBIN,DIRECT 0.2 mg/dL (0.0-0.4); BILIRUBIN,TOTAL 0.9 mg/dL (0.2-1.3); BLOOD UREA NITROGEN 16 mg/dL (7-20); CALCIUM 8.7 mg/dL (8.4-10.2); CARBON DIOXIDE 26 mmol/L (22-30); CHLORIDE 106 mmol/L (98-107); CREATINE KINASE 54 U/L (30-135); POTASSIUM 3.7 mmol/L (3.6-5.0); SODIUM 140.5 mmol/L (137-145); TOTAL PROTEIN 7.2 g/dL (6.3-8.2)
[2018-08-31 22:12] LABS: GLUCOSE 50 mg/dL (75-110)
[2018-08-31 22:22] LABS: CREATINE KINASE MB 0.93 ng/mL (<4.55); NT PRO BNP 1460 pg/mL (5-900); TROPONIN I < 0.012 ng/mL
[2018-08-31 22:28] LABS: PLATELET COUNT 96 10^3/uL (150-450)
--- NOTE | 2018-08-31 22:28 | RADIOLOGY REPORT (SQ) ---
EXAM DESCRIPTION: XR CHEST 1 VIEW COMPLETED DATE/TME: 08/31/2018 21:35 CLINICAL HISTORY: 58 years, Female, sob, cp Comparison: None FINDINGS: No focal lung consolidation. Possible tiny bilateral pleural effusions. No pneumothorax. Cardiac and mediastinal silhouette is unremarkable. Mild pulmonary vascular congestion. No acute osseous abnormality. Soft tissues are unremarkable. IMPRESSION: Mild central pulmonary vascular congestion and possible tiny pleural effusions.
[2018-08-31 22:29] LABS: HEMOGLOBIN 7.4 g/dL (12.0-15.5)
--- NOTE | 2018-08-31 22:51 | EKG REPORT ---
SEVERITY:- NORMAL ECG - SINUS RHYTHM NONSPECIFIC ST-T CHANGES : Confirmed by: Arthur Posey 31-Aug-2018 22:51:18
[2018-09-01] MEDS ORDERED: NORMAL SALINE 250 ML IV PRN (00:23)
[2018-09-01] MEDS ORDERED: IRON SUCROSE COMPLEX INJ/PF 100 MG/5 ML SDV IV ONE ×2 (00:31→01:03)
[2018-09-01] MEDS ORDERED: PROMETHAZINE HCL 25 MG SUPP.RECT PR PRN (00:32)
[2018-09-01] MEDS ORDERED: MAG HYDROX/AL HYDROX/SIMETH SUSP 30 ML UDCUP PO PRN (00:32)
--- NOTE | 2018-09-01 00:43 | ER Document Report ---
ED General - General Chief Complaint: Chest Pain Stated Complaint: SHORTNESS OF BREATH Time Seen by Provider: 08/31/18 21:31 Notes: Patient is a 58-year-old female with past medical history of hypertension, hyperlipidemia, hypothyroidism, depression, presents complaining of approximately 3 weeks to 1 month of exertional intolerance secondary to shortness of breath with exertion. Patient states she also feels quite fatigued at all times. She also notes that she has intermittent stabbing, mildly discomforting chest pain that comes and goes. That has also been going on for several weeks. Patient also reports that she has had recurrent diarrhea for at least the past 1 month usually loose, watery or green stools. Denies any melena or hematochezia. Denies nausea, vomiting or hematemesis. No history of similar symptoms in the past. Patient states that she does have a history of mild anemia at baseline but is never required blood transfusion. She has not seen her primary care doctor regarding today's concerns. Nothing seems to improve or worsen her symptoms. TRAVEL OUTSIDE OF THE [place] IN LAST 30 DAYS: No - Related Data Allergies/Adverse Reactions: morphine Allergy (Verified 12/21/16 18:30) Past Medical History - General Information source: Patient - Social History Smoking Status: Current Every Day Smoker Frequency of alcohol use: None Drug Abuse: None Lives with: Family Family History: Reviewed & Not Pertinent, COPD Patient has suicidal ideation: No Patient has homicidal ideation: No Pulmonary Medical History: Reports: Hx Asthma, Hx COPD Endocrine Medical History: Reports: Hx Diabetes Mellitus Type 1, Hx Diabetes Mellitus Type 2 Renal/ Medical History: Denies: Hx Peritoneal Dialysis Psychiatric Medical History: Reports: Hx Depression Past Surgical History: Reports: Hx Appendectomy, Hx Orthopedic Surgery - R ankle, Hx Tubal Ligation - Immunizations Immunizations up to date: Yes Hx Diphtheria, Pertussis, Tetanus Vaccination: Yes Review of Systems - Review of Systems Notes: Constitutional: Negative for fever. HENT: Negative for sore throat. Eyes: Negative for visual changes. Cardiovascular: Positive for chest pain. Respiratory: Positive for exertional shortness of breath Gastrointestinal: Negative for abdominal pain, positive for diarrhea Genitourinary: Negative for dysuria. Musculoskeletal: Negative for back pain. Skin: Negative for rash. Neurological: Negative for headaches, weakness or numbness. 10 point ROS negative except as marked above and in HPI. Physical Exam - Vital signs Vitals: Temp Pulse Resp BP Pulse Ox 98.8 F 83 24 H 151/52 H 96 08/31/18 21:05 08/31/18 21:05 08/31/18 21:05 08/31/18 21:05 08/31/18 21:05 Interpretation: Hypertensive Notes: PHYSICAL EXAMINATION: GENERAL: Well-appearing, well-nourished and in no acute distress. HEAD: Atraumatic, normocephalic. EYES: Pupils equal round and reactive to light, extraocular movements intact, sclera anicteric, conjunctiva are normal. ENT: nares patent, oropharynx clear without exudates. Moderate dry mucous membranes. NECK: Normal range of motion, supple without lymphadenopathy LUNGS: Breath sounds clear to auscultation bilaterally and equal. No wheezes rales or rhonchi. HEART: Irregular regular rate and rhythm without murmurs Rectal: Loose, watery brown red stool guaiac positive. ABDOMEN: Soft, nontender, normoactive bowel sounds. No guarding, no rebound. No masses appreciated. EXTREMITIES: Normal range of motion, no pitting or edema. No cyanosis. NEUROLOGICAL: No focal neurological deficits. Moves all extremities spontaneously and on command. PSYCH: Normal mood, normal affect. SKIN: Warm, pale skin Course - Re-evaluation Re-evalutation: 09/01/18 00:42 Patient presents with complaints of several weeks of progressively worsening exertional intolerance secondary to shortness of breath when she exerts herself. She also notes some mild chest discomfort and bilateral lower extremity edema. Patient has had diarrhea for approximately 1 month. On exam the patient is otherwise well in appearance, vitals within acceptable limits, in atrial fibrillation of which she has a history. The patient denies any known history of GI bleed although on rectal examination her stool is tinged with blood and is grossly guaiac positive. Hemoglobin found to be at 7.4 and I suspect that her symptoms are secondary to acute blood loss anemia as her hemoglobin was 10.8 less than 1 month ago. She will be transfused 2 units packed red blood cells. I discussed with the hospitalist for admission as patient likely needs further monitoring in the setting of exertional intolerance with need for blood product as well as probable colonoscopy and/or endoscopy. Dr. Parra is the surgeon button attaching machine operator, is credentialed for these procedures and is available for consultation. - Vital Signs Vital signs: Temp Pulse Resp BP Pulse Ox 98.8 F 83 15 145/62 H 94 08/31/18 21:05 08/31/18 21:05 09/01/18 00:01 09/01/18 00:01 09/01/18 00:01 - Laboratory Result Diagrams: 08/31/18 21:50 08/31/18 21:50 Laboratory results interpreted by me: 08/31/18 08/31/18 08/31/18 21:50 21:50 21:50 Hgb 7.4 L Hct 24.9 L MCV 64 L MCH 19.0 L MCHC 29.6 L RDW 20.5 H Plt Count 96 L Glucose 50 L POC Glucose NT-Pro-B Natriuret Pep 1460 H Crossmatch 08/31/18 08/31/18 22:28 23:32 Hgb Hct MCV MCH MCHC RDW Plt Count Glucose POC Glucose 64 L NT-Pro-B Natriuret Pep Crossmatch See Detail - Diagnostic Test Radiology reviewed: Image reviewed, Reports reviewed Radiology results interpreted by me: 09/01/18 01:16 Chest x-ray: Moderate cardiomegaly - EKG Interpretation by Me Additional EKG results interpreted by me: 09/01/18 01:16 Sinus rhythm, rate 87. No ST elevations or depressions. QTC is 482. Discharge - Discharge Clinical Impression: Blood loss anemia, Exertional shortness of breath Condition: Fair Disposition: ADMITTED INPATIENT Admitting Provider: Hospitalist Unit Admitted: Telemetry
[2018-09-01] MEDS ORDERED: NORMAL SALINE 1000 ML 1,000 ML IV PRN (00:45)
[2018-09-01] MEDS ORDERED: PANTOPRAZOLE SODIUM 40 MG VIAL IV ONE (00:45)
[2018-09-01] MEDS ORDERED: ARIPIPRAZOLE 5 MG TABLET PO ONE (01:00)
[2018-09-01 01:30] LABS: ABSOLUTE RETICS # 0.114 10^6/uL (0.028-0.122); RETICULOCYTE COUNT (AUTO) 2.85 % (0.66-2.85)
[2018-09-01 01:41] LABS: IRON(TIBC) 23.1 ug/dL (37-170)
--- NOTE | 2018-09-01 05:01 | PDOC H&P ---
History of Present Illness Admission Date/PCP: 09/01/18 00:52 WISAM HUGHES MD Patient complains of: Fatigue and shortness of breath with exertion History of Present Illness: JESENIA NOVAK is a 58 year old female with a past medical history of COPD, hypertension, dyslipidemia, diabetes, chronic pain, thrombocytopenia and iron deficiency anemia with Hemoccult positive stools without source identification. In the emergency department she is found to have a Hemoccult positive stool, microcytic anemia and hemoglobin of 7.3. 3 weeks ago her hemoglobin was 10.5. She complains of 1 month of loose stools but denies epigastric pain, vomiting, dark stool or discolored urine. She denies new medication or NSAID use. Past Medical History Pulmonary Medical History: Reports: Asthma, Chronic Obstructive Pulmonary Disease (COPD) Endocrine Medical History: Reports: Diabetes Mellitus Type 1, Diabetes Mellitus Type 2 Psychiatric Medical History: Reports: Depression Hematology: Reports: Anemia Past Surgical History Past Surgical History: Reports: Appendectomy, Orthopedic Surgery - R ankle, Tubal Ligation Social History Information Source: Patient Lives with: Family Smoking Status: Current Every Day Smoker Cigarettes Packs Per Day: 0.5 Number of Years Smokin Frequency of Alcohol Use: None Hx Recreational Drug Use: No Drugs: None Hx Prescription Drug Abuse: No - Advance Directive Resuscitation Status: Full Code Family History Family History: COPD Parental Family History Reviewed: Yes Children Family History Reviewed: Yes Sibling(s) Family History Reviewed.: Yes Medication/Allergy Home Medications: Aripiprazole [Abilify 5 mg Tablet] 5 mg PO DAILY 10/14/17 Aripiprazole [Abilify 5 mg Tablet] 5 mg PO DAILY 10/14/17 Canagliflozin [Invokana] 100 mg PO [id number] 10/14/17 Hum Insulin NPH/Reg Insulin Hm [Novolin 70-30 100 Unit/ml Vial] 75 unit SQ QHS 10/14/17 Hum Insulin NPH/Reg Insulin Hm [Novolin 70-30 100 Unit/ml Vial] 80 unit SQ QAM 10/14/17 Lorazepam [Ativan 1 mg Tablet] 1 mg PO PRN PRN 10/14/17 Metoprolol Tartrate [Lopressor 50 mg Tablet] 12.5 mg PO Q12 10/14/17 Omeprazole 20 mg PO DAILY 10/14/17 Pregabalin [Lyrica] 150 mg PO Q8 10/14/17 Sertraline HCl [Zoloft] 100 mg PO DAILY 10/14/17 Nystatin [Mycostatin Topical Powder 15 gm] 1 applic TP BID #1 bottle 10/16/17 Oxycodone HCl 5 mg PO Q6HP PRN #20 capsule 06/17/18 Albuterol Sulfate [Albuterol Sulfate Hfa] 1 inh IH Q4HP PRN 09/01/18 Aspirin [Aspirin 81 mg Chewable Tablet] 81 mg PO DAILY 09/01/18 Allergies/Adverse Reactions: morphine Allergy (Verified 12/21/16 18:30) Review of Systems Constitutional: ABSENT: chills, fever(s), headache(s), weight gain, weight loss Eyes: ABSENT: visual disturbances Ears: ABSENT: hearing changes Cardiovascular: ABSENT: chest pain, dyspnea on exertion, edema, orthropnea, palpitations Respiratory: ABSENT: cough, hemoptysis Gastrointestinal: PRESENT: as per HPI, diarrhea - 1 month of loose stool. ABSENT: abdominal pain, bloating, coffee ground emesis, constipation, hematemesis, hematochezia, nausea, vomiting Genitourinary: ABSENT: dysuria, hematuria Musculoskeletal: ABSENT: joint swelling Integumentary: ABSENT: rash, wounds Neurological: ABSENT: abnormal gait, abnormal speech, confusion, dizziness, focal weakness, syncope Psychiatric: ABSENT: anxiety, depression, homidical ideation, suicidal ideation Endocrine: ABSENT: cold intolerance, heat intolerance, polydipsia, polyuria Hematologic/Lymphatic: ABSENT: easy bleeding, easy bruising Physical Exam Vital Signs: Temp Pulse Resp BP Pulse Ox 98.2 F 76 18 139/81 H 97 09/01/18 03:50 09/01/18 03:50 09/01/18 03:50 09/01/18 03:50 09/01/18 03:50 Intake & Output 08/30/18 08/31/18 09/01/18 11:59 11:59 11:59 Intake Total 0 Balance 0 Weight 113.6 kg General appearance: PRESENT: no acute distress, well-developed, well-nourished Head exam: PRESENT: atraumatic, normocephalic Eye exam: PRESENT: conjunctiva pale, EOMI, PERRLA. ABSENT: scleral icterus Ear exam: PRESENT: normal external ear exam Mouth exam: PRESENT: moist, tongue midline Neck exam: ABSENT: carotid bruit, JVD, lymphadenopathy, thyromegaly Respiratory exam: PRESENT: clear to auscultation [place]. ABSENT: rales, rhonchi, wheezes Cardiovascular exam: PRESENT: RRR. ABSENT: diastolic murmur, rubs, systolic murmur Pulses: PRESENT: normal dorsalis pedis pul Vascular exam: PRESENT: normal capillary refill GI/Abdominal exam: PRESENT: normal bowel sounds, soft. ABSENT: distended, guarding, mass, organolmegaly, rebound, tenderness Rectal exam: PRESENT: deferred Extremities exam: PRESENT: full ROM. ABSENT: calf tenderness, clubbing, pedal edema Neurological exam: PRESENT: alert, awake, oriented to person, oriented to place, oriented to time, oriented to situation, CN II-XII grossly intact. ABSENT: motor sensory deficit Psychiatric exam: PRESENT: appropriate affect, normal mood. ABSENT: homicidal ideation, suicidal ideation Skin exam: PRESENT: dry, intact, warm. ABSENT: cyanosis, rash Results Laboratory Results: 08/31/18 21:50 08/31/18 21:50 08/31/18 08/31/18 08/31/18 21:50 21:50 21:50 WBC 8.4 Cancelled RBC 3.88 Cancelled Hgb 7.4 L Cancelled Hct 24.9 L Cancelled MCV 64 L Cancelled MCH 19.0 L Cancelled MCHC 29.6 L Cancelled RDW 20.5 H Cancelled Plt Count 96 L Cancelled Seg Neutrophils % Cancelled Lymphocytes % Cancelled Monocytes % Cancelled Eosinophils % Cancelled Basophils % Cancelled Absolute Neutrophils Cancelled Absolute Lymphocytes Cancelled Absolute Monocytes Cancelled Absolute Eosinophils Cancelled Absolute Basophils Cancelled Retic Count (auto) 2.85 Absolute Retic 0.114 Sodium 140.5 Potassium 3.7 Chloride 106 Carbon Dioxide 26 Anion Gap 9 BUN 16 Creatinine 0.95 Est GFR ( Amer) > 60 Est GFR (Non-Af Amer) > 60 Glucose 50 L Calcium 8.7 Iron TIBC % Saturation Ferritin Total Bilirubin 0.9 AST 21 ALT 18 Alkaline Phosphatase 94 Total Protein 7.2 Albumin 3.8 Vitamin B12 Folate Blood Type Antibody Screen 08/31/18 08/31/18 21:50 23:32 WBC RBC Hgb Hct MCV MCH MCHC RDW Plt Count Seg Neutrophils % Lymphocytes % Monocytes % Eosinophils % Basophils % Absolute Neutrophils Absolute Lymphocytes Absolute Monocytes Absolute Eosinophils Absolute Basophils Retic Count (auto) Absolute Retic Sodium Potassium Chloride Carbon Dioxide Anion Gap BUN Creatinine Est GFR ( Amer) Est GFR (Non-Af Amer) Glucose Calcium Iron 23.1 L TIBC 391 % Saturation 6 Ferritin 18.70 Total Bilirubin AST ALT Alkaline Phosphatase Total Protein Albumin Vitamin B12 260.0 Folate 8.50 Blood Type O POSITIVE Antibody Screen NEGATIVE 08/31/18 08/31/18 09/01/18 21:50 21:50 00:39 Creatine Kinase 54 CK-MB (CK-2) 0.93 Troponin I < 0.012 < 0.012 NT-Pro-B Natriuret Pep 1460 H Impressions: Chest X-Ray 08/31/18 21:35 IMPRESSION: Mild central pulmonary vascular congestion and possible tiny pleural effusions. Assessment & Plan - Diagnosis (1) Blood loss anemia Is this a current diagnosis for this admission?: Yes Plan: Unclear GI source from former upper and lower endoscopy. Persistent iron deficient anemia. Not on iron secondary to constipation. 1 unit of packed red blood cells ordered, IV iron ordered. N.p.o., follow-up GI versus surgical consult (2) Diabetes mellitus Is this a current diagnosis for this admission?: Yes Plan: Humalog sliding scale every 6 hours as needed (3) Thrombocytopenia Is this a current diagnosis for this admission?: Yes Plan: Appears chronic consider outpatient hematology consult (4) Tobacco abuse Is this a current diagnosis for this admission?: Yes Plan: Tobacco Dependence patient received tobacco cessation counseling and offered nicotine replacement options - Time Time Spent: 50 to 70 Minutes - Inpatient Certification Medical Necessity: Need Close Monitoring Due to Risk of Patient Decompensation
[2018-09-01] MEDS ORDERED: HEPARIN SOD (PORCINE) 5,000 UNIT/ML 1 ML SYRINGE SUBCUT SCH (06:00)
[2018-09-01] MEDS: GUAIFENESIN SYRP 200 MG/10 ML UDC PO PRN ×2 (06:10→21:56)
[2018-09-01] MEDS: DEXTROSE 50%-WATER SYRINGE 12.5 GM/25 ML DOSE IV PRN ×2 (06:24→09:21)
[2018-09-01] MEDS ORDERED: GLUCAGON,HUMAN RECOMB 1 MG INJ IM PRN (06:30)
[2018-09-01] MEDS ORDERED: DEXTROSE 40% GEL 15 GM TUBE X 2 PO PRN (06:30)
[2018-09-01] MEDS ORDERED: DEXTROSE 50%-WATER SYRINGE 25 GM/50 ML DOSE IV PRN (06:30)
[2018-09-01] MEDS ORDERED: DEXTROSE 40% GEL 15 GM TUBE PO PRN (06:30)
[2018-09-01] MEDS ORDERED: FUROSEMIDE INJ/PF 40 MG/4 ML SDV IV ONE ×2 (08:30→09:15)
[2018-09-01] MEDS: IPRATROPIUM/ALBUTEROL 0.5-2.5 MG/3 ML AMPUL NEB PRN (09:56)
[2018-09-01] MEDS ORDERED: METOPROLOL TARTRATE 50 MG TABLET PO SCH (10:00)
[2018-09-01] MEDS: ARIPIPRAZOLE 5 MG TABLET PO SCH (10:41)
[2018-09-01] MEDS: SERTRALINE HCL 50 MG TABLET PO SCH (10:42)
[2018-09-01] MEDS: PANTOPRAZOLE SODIUM 40 MG VIAL IV SCH ×2 (10:43→21:55)
[2018-09-01 11:10] LABS: ABSOLUTE BASOPHILS # (AUTO) 0.1 10^3/uL (0.0-0.2); ABSOLUTE EOSINOPHILS # (AUTO) 0.1 10^3/uL (0.0-0.6); ABSOLUTE LYMPHOCYTES (AUTO) 1.3 10^3/uL (0.5-4.7); ABSOLUTE MONOCYTES (AUTO) 0.4 10^3/uL (0.1-1.4); ABSOLUTE NEUT (AUTO) 4.8 10^3/uL (1.7-8.2); BASOPHILS % (AUTO) 0.9 % (0-2); EOSINOPHILS % (AUTO) 1.8 % (0-6); LYMPHOCYTES % (AUTO) 19.2 % (13-45); MEAN CORPUSCULAR HEMOGLOBIN 20.1 pg (27.0-33.4); MEAN CORPUSCULAR HGB CONC 30.5 g/dL (32.0-36.0); MEAN CORPUSCULAR VOLUME 66 fl (80-97); MONOCYTES % (AUTO) 6.4 % (3-13); RED BLOOD COUNT 4.71 10^6/uL (3.72-5.28); RED CELL DISTRIBUTION WIDTH 22.6 % (11.5-14.0); SEGMENTED NEUTROPHILS % (AUTO) 71.7 % (42-78); TOTAL CELLS COUNTED % (AUTO) 100 %; WHITE BLOOD COUNT 6.7 10^3/uL (4.0-10.5)
[2018-09-01 11:39] LABS: HEMOGLOBIN 9.5 g/dL (12.0-15.5); PLATELET COUNT 97 10^3/uL (150-450)
--- NOTE | 2018-09-01 13:00 | EKG REPORT ---
SEVERITY:- NORMAL ECG - SINUS RHYTHM : Confirmed by: Marcie Johnson MD 01-Sep-2018 12:59:33
[2018-09-01] MEDS ORDERED: POTASSI CL 20 MEQ/D5-1/2NS 1L 1,000 ML IV PRN (15:22)
--- NOTE | 2018-09-01 17:56 | PDOC CONSULTATION ---
Consultation Consult Date: 09/01/18 Consult reason:: anemia, hemeoccult + stools History of Present Illness Admission Date/PCP: 09/01/18 00:52 JULIAN LAY MD pt presents to er History of Present Illness: JESENIA NOVAK is a 58 year old female who presents to er lasp pm with shortness of breath with exertion. pt c/o weakness and fatigue and was found to have a microcytic anemia with hemoglobin of 7.4 with heme + stools admitted for blood tx and further investigation of the source. surgery consulted for endoscopy. she c/o a month of loose stools, on and off, but denies any abd pain, vomitng of blood or wt loss no family hx of colo or other gi malignancies. Past Medical History Pulmonary Medical History: Reports: Asthma, Chronic Obstructive Pulmonary Disease (COPD) Endocrine Medical History: Reports: Diabetes Mellitus Type 1, Diabetes Mellitus Type 2 Psychiatric Medical History: Reports: Depression Hematology: Reports: Anemia Past Surgical History Past Surgical History: Reports: Appendectomy, Orthopedic Surgery - R ankle, Tubal Ligation Social History Lives with: Family Smoking Status: Current Every Day Smoker Cigarettes Packs Per Day: 0.5 Number of Years Smokin Frequency of Alcohol Use: None Hx Recreational Drug Use: No Drugs: None Hx Prescription Drug Abuse: No - Advance Directive Resuscitation Status: Full Code Family History Family History: COPD Parental Family History Reviewed: Yes Children Family History Reviewed: Yes Sibling(s) Family History Reviewed.: Yes Medication/Allergy Home Medications: Aripiprazole [Abilify 5 mg Tablet] 5 mg PO DAILY 10/14/17 Canagliflozin [Invokana] 100 mg PO ACBRKFST 10/14/17 Hum Insulin NPH/Reg Insulin Hm [Novolin 70-30 100 Unit/ml Vial] 75 unit SQ QHS 10/14/17 Hum Insulin NPH/Reg Insulin Hm [Novolin 70-30 100 Unit/ml Vial] 80 unit SQ QAM 10/14/17 Metoprolol Tartrate [Lopressor 50 mg Tablet] 25 mg PO Q12 10/14/17 Omeprazole 20 mg PO DAILY 10/14/17 Pregabalin [Lyrica] 150 mg PO Q8 10/14/17 Albuterol Sulfate [Albuterol Sulfate Hfa] 2 puff IH Q4HP PRN 09/01/18 Aspirin [Ecotrin 81 mg EC Tablet] 81 mg PO DAILY 09/01/18 Budesonide/Formoterol Fumarate [Symbicort Hfa 160-4.5 Mcg Inhaler 6 gm] 2 puff IH Q12 09/01/18 Mometasone Furoate [Nasonex] 2 spray NS DAILYP PRN 09/01/18 Sertraline HCl [Zoloft] 100 mg PO DAILY 09/01/18 Allergies/Adverse Reactions: morphine Allergy (Verified 09/01/18 11:27) Review of Systems Constitutional: PRESENT: as per HPI Eyes: PRESENT: as per HPI Ears: PRESENT: as per HPI Nose, Mouth, and Throat: PRESENT: as per HPI Breasts: PRESENT: as per HPI Cardiovascular: PRESENT: as per HPI Respiratory: PRESENT: as per HPI, dyspnea Gastrointestinal: PRESENT: as per HPI Genitourinary: PRESENT: as per HPI Musculoskeletal: PRESENT: as per HPI Integumentary: PRESENT: as per HPI Neurological: PRESENT: weakness Physical Exam Vital Signs: Temp Pulse Resp BP Pulse Ox 98.6 F 83 16 144/74 H 97 09/01/18 14:57 09/01/18 14:57 09/01/18 14:57 09/01/18 14:57 09/01/18 14:57 Intake & Output 08/31/18 09/01/18 09/02/18 06:59 06:59 06:59 Intake Total 300 300 Output Total 900 Balance 300 -600 Weight 113.6 kg General appearance: PRESENT: no acute distress Head exam: PRESENT: atraumatic Eye exam: PRESENT: conjunctiva pink, conjunctiva pale Respiratory exam: PRESENT: clear to auscultation rosanna Cardiovascular exam: PRESENT: RRR Pulses: PRESENT: normal radial pulses, normal femoral pulses Vascular exam: PRESENT: normal capillary refill GI/Abdominal exam: PRESENT: soft Rectal exam: PRESENT: deferred Extremities exam: PRESENT: full ROM, +2 edema Musculoskeletal exam: PRESENT: full ROM Neurological exam: PRESENT: alert, awake, oriented to person, oriented to place, oriented to time, oriented to situation Skin exam: PRESENT: dry Results Laboratory Results: 09/01/18 10:44 08/31/18 21:50 08/31/18 08/31/18 08/31/18 21:50 21:50 21:50 WBC 8.4 Cancelled RBC 3.88 Cancelled Hgb 7.4 L Cancelled Hct 24.9 L Cancelled MCV 64 L Cancelled MCH 19.0 L Cancelled MCHC 29.6 L Cancelled RDW 20.5 H Cancelled Plt Count 96 L Cancelled Seg Neutrophils % Cancelled Lymphocytes % Cancelled Monocytes % Cancelled Eosinophils % Cancelled Basophils % Cancelled Absolute Neutrophils Cancelled Absolute Lymphocytes Cancelled Absolute Monocytes Cancelled Absolute Eosinophils Cancelled Absolute Basophils Cancelled Retic Count (auto) 2.85 Absolute Retic 0.114 Sodium 140.5 Potassium 3.7 Chloride 106 Carbon Dioxide 26 Anion Gap 9 BUN 16 Creatinine 0.95 Est GFR ( Amer) > 60 Est GFR (Non-Af Amer) > 60 Glucose 50 L Calcium 8.7 Iron TIBC % Saturation Ferritin Total Bilirubin 0.9 AST 21 ALT 18 Alkaline Phosphatase 94 Total Protein 7.2 Albumin 3.8 Vitamin B12 Folate Blood Type Antibody Screen 08/31/18 08/31/18 09/01/18 21:50 23:32 10:44 WBC 6.7 RBC 4.71 Hgb 9.5 L D Hct 31.0 L MCV 66 L MCH 20.1 L MCHC 30.5 L RDW 22.6 H Plt Count 97 L Seg Neutrophils % 71.7 Lymphocytes % 19.2 Monocytes % 6.4 Eosinophils % 1.8 Basophils % 0.9 Absolute Neutrophils 4.8 Absolute Lymphocytes 1.3 Absolute Monocytes 0.4 Absolute Eosinophils 0.1 Absolute Basophils 0.1 Retic Count (auto) Absolute Retic Sodium Potassium Chloride Carbon Dioxide Anion Gap BUN Creatinine Est GFR ( Amer) Est GFR (Non-Af Amer) Glucose Calcium Iron 23.1 L TIBC 391 % Saturation 6 Ferritin 18.70 Total Bilirubin AST ALT Alkaline Phosphatase Total Protein Albumin Vitamin B12 260.0 Folate 8.50 Blood Type O POSITIVE Antibody Screen NEGATIVE 08/31/18 08/31/18 09/01/18 21:50 21:50 00:39 Creatine Kinase 54 CK-MB (CK-2) 0.93 Troponin I < 0.012 < 0.012 NT-Pro-B Natriuret Pep 1460 H Impressions: Chest X-Ray 08/31/18 21:35 IMPRESSION: Mild central pulmonary vascular congestion and possible tiny pleural effusions. Assessment & Plan - Diagnosis (1) Blood loss anemia Is this a current diagnosis for this admission?: Yes - Plan Summary Plan Summary: pt with anemia, weakness and fatigue heme +stools last colo 10yrs ago will plan on upper and lower endoscopy in am after a bowel prep discussed risks and benifits including perforation and further bleeding. she understands and agrees to proceed.
[2018-09-01] MEDS ORDERED: PEG 3350/NA SULF,BICARB,CL/KCL 4000 ML PO ONE (19:00)
[2018-09-01] MEDS: ACETAMINOPHEN 325 MG TABLET PO PRN (20:55)
[2018-09-01] MEDS: METOPROLOL TARTRATE 25 MG TABLET PO SCH (21:55)
[2018-09-02 00:58] LABS: ABSOLUTE BASOPHILS # (AUTO) 0.1 10^3/uL (0.0-0.2); ABSOLUTE EOSINOPHILS # (AUTO) 0.1 10^3/uL (0.0-0.6); ABSOLUTE LYMPHOCYTES (AUTO) 1.4 10^3/uL (0.5-4.7); ABSOLUTE MONOCYTES (AUTO) 0.4 10^3/uL (0.1-1.4); ABSOLUTE NEUT (AUTO) 4.2 10^3/uL (1.7-8.2); BASOPHILS % (AUTO) 1.1 % (0-2); EOSINOPHILS % (AUTO) 2.3 % (0-6); HEMOGLOBIN 8.9 g/dL (12.0-15.5); LYMPHOCYTES % (AUTO) 23.1 % (13-45); MEAN CORPUSCULAR HEMOGLOBIN 19.7 pg (27.0-33.4); MEAN CORPUSCULAR HGB CONC 30.8 g/dL (32.0-36.0); MEAN CORPUSCULAR VOLUME 64 fl (80-97); MONOCYTES % (AUTO) 6.2 % (3-13); RED BLOOD COUNT 4.52 10^6/uL (3.72-5.28); RED CELL DISTRIBUTION WIDTH 22.1 % (11.5-14.0); SEGMENTED NEUTROPHILS % (AUTO) 67.3 % (42-78); TOTAL CELLS COUNTED % (AUTO) 100 %; WHITE BLOOD COUNT 6.2 10^3/uL (4.0-10.5)
[2018-09-02 01:29] LABS: PLATELET COUNT 82 10^3/uL (150-450)
[2018-09-02 01:33] LABS: ANISOCYTOSIS 3+; OVALOCYTES SLIGHT; PLATELET COMMENT DECREASED; PLATELET LARGE PRESENT; POIKILOCYTOSIS SLIGHT; POLYCHROMASIA SLIGHT; TEAR DROP CELLS SLIGHT
[2018-09-02 01:34] LABS: HYPOCHROMASIA SLIGHT
[2018-09-02] MEDS: ACETAMINOPHEN 325 MG TABLET PO PRN (05:02)
[2018-09-02 07:43] LABS: ANION GAP 9 (5-19); BLOOD UREA NITROGEN 7 mg/dL (7-20); CALCIUM 9.1 mg/dL (8.4-10.2); CARBON DIOXIDE 28 mmol/L (22-30); CHLORIDE 104 mmol/L (98-107); GLUCOSE 139 mg/dL (75-110); POTASSIUM 3.9 mmol/L (3.6-5.0); SODIUM 140.8 mmol/L (137-145)
[2018-09-02] MEDS ORDERED: ONDANSETRON HCL INJ/PF 4 MG/2 ML SDV ONE (09:29)
[2018-09-02] MEDS ORDERED: DIPHENHYDRAMINE HCL 50 MG/ML VIAL ONE (09:29)
[2018-09-02] MEDS ORDERED: EPINEPHRINE INJ 1 MG/10 ML DISP.SYRIN ONE (09:30)
[2018-09-02] MEDS ORDERED: NALOXONE HCL INJ/PF 0.4 MG/1 ML SDV ONE (09:30)
[2018-09-02] MEDS ORDERED: FLUMAZENIL INJ 0.5 MG/5 ML VIAL ONE (09:30)
[2018-09-02] MEDS ORDERED: GLUCAGON,HUMAN RECOMB 1 MG INJ ONE (09:30)
[2018-09-02] MEDS: MIDAZOLAM 2 MG/2 ML INJ ONE ×4 (10:10→10:49)
[2018-09-02] MEDS: FENTANYL CITRATE INJ/PF 100 MCG/2 ML AMPUL ONE ×3 (10:12→10:26)
--- NOTE | 2018-09-02 11:27 | Operative Report ---
Nonrecallable Operative Report DATE OF SURGERY: 09/02/18 PREOPERATIVE DIAGNOSIS: anemia, r/o gi bleed POSTOPERATIVE DIAGNOSIS: anemia, OPERATION: esophagogastroscopy, colonoscopy and polypectomy SURGEON: CHARLIE ERNST ANESTHESIA: Moderate Sedation TISSUE REMOVED OR ALTERED: polyp from cecum and ascending colon COMPLICATIONS: none ESTIMATED BLOOD LOSS: 2cc INTRAOPERATIVE FINDINGS: diverticulosis, colonic polyp x2. no active bleeding PROCEDURE: see dictation
--- NOTE | 2018-09-02 11:58 | OPERATIVE REPORT E ---
Operative Report NAME: JESENIA NOVAK : 1960 AGE: 58Y DATE OF SURGERY: 09/02/2018 ROOM: 333 PREOPERATIVE DIAGNOSIS: ANEMIA, RULE OUT GI BLEED. POSTOPERATIVE DIAGNOSIS: COLONIC POLYPS. OPERATION: Esophagogastroduodenoscopy and colonoscopy. SURGEON: CHARLIE ERNST M.D. INDICATIONS FOR PROCEDURE: This is a 58-year-old female with a past medical history of COPD, hypertension, dyslipidemia, diabetes, chronic pain, thrombocytopenia, and iron deficiency anemia. Had Hemoccult positive stools without source of identification. Was admitted to the hospital on 08/04/2018 and found to have Hemoccult positive stools with hemoglobin 7.3. Three weeks ago her hemoglobin was 10.5. She complained of 1 month history of loose stools and therefore scheduled for this procedure. PROCEDURE: The patient was brought to the endoscopy suite, awake and alert, in stable condition, given IV sedation. Posterior pharynx was anesthetized with Hurricane spray. An Olympus gastroscope was then placed into the posterior pharynx and manipulated down past the upper esophageal sphincter to the esophagus and then the GE junction. Gastric cardia, body, antrum, and then just past the pylorus. Visualization revealed bilious fluids in the duodenum and proximal to the pylorus there was no evidence of any gastritis or ulceration. Greater curvature, antrum, lesser curvature, and body of the stomach all appeared to be normal without any evidence of ulcerations or gastritis. Retroflexion noted a moderate sized hiatal hernia but no evidence of any erosions in the proximal stomach or distal esophagus. As we withdrew the scope, evaluation of the esophagus was seen and it was noted to be normal. The scope was then removed. The patient was then placed in a left lateral decubitus position for colonoscopy. The Olympus colonoscope was then passed through the rectum and manipulated past the distal rectum into the sigmoid, up the descending colon, around the splenic flexure, transverse colon, to the hepatic flexure then into the cecum. The bowel prep was adequate. We identified the ileocecal valve. There was some bilious fluid coming from the ileocecal valve. No evidence of any bleeding. There was an approximately 5 mm cecal polyp that was removed using electrocoagulation snare and it was removed and recovered. Then, somewhat more proximally in the ascending colon there was second 5 mm polyp that was snared with the electrocautery and also recovered. There is no other significant polyps in the ascending colon, hepatic flexure, transverse colon. As we came through the transverse colon into the splenic flexure, we did note some moderate-sized diverticula but there was no evidence of any blood at the orifice and no evidence of any active bleeding. We came around the splenic flexure down the descending colon, sigmoid, and rectum. There was no further evidence of any bleeding or any significant diverticulosis. We removed the scope which completed this portion of the procedure. FINDINGS: 1. ESOPHAGOGASTRODUODENOSCOPY APPEARED TO BE NORMAL WITHOUT EVIDENCE OF ANY MUCOSAL ABNORMALITIES OR BLEEDING. 2. COLONOSCOPY TO THE CECUM REVEALED 2 POLYPS; ONE IN THE CECUM AND ONE IN THE ASCENDING COLON. NO EVIDENCE OF ACUTE BLOOD LOSS. THIS COMPLETED THE PROCEDURES. The patient was transferred back to recovery in stable condition. No complications. DICTATING PHYSICIAN: CHARLIE ERNST M.D. [id number] PHY#: [id number] ID: [id number] JOB#: [id number] ACCT: [id number] cc:CHARLIE ERNST M.D. >
[2018-09-02] MEDS: ARIPIPRAZOLE 5 MG TABLET PO SCH (14:44)
[2018-09-02] MEDS: METOPROLOL TARTRATE 25 MG TABLET PO SCH ×2 (14:44→21:06)
[2018-09-02] MEDS: SERTRALINE HCL 50 MG TABLET PO SCH (14:45)
[2018-09-02] MEDS: PANTOPRAZOLE SODIUM 40 MG VIAL IV SCH ×2 (14:46→21:06)
[2018-09-02] MEDS: INSULIN LISPRO 100 UNIT/ML 3 ML VIAL SUBCUT SCH ×2 (18:53→21:43)
[2018-09-02] MEDS: PREGABALIN 75 MG CAPSULE PO SCH (21:06)
[2018-09-02] MEDS: BUDESONIDE/FORMOTEROL 160-4.5 MCG 60 PUFF/6 GM MDI IH SCH (21:06)
[2018-09-02] MEDS: GUAIFENESIN SYRP 200 MG/10 ML UDC PO PRN (23:49)
[2018-09-03 01:07] LABS: HEMATOCRIT 28.6 % (36.0-47.0); HEMOGLOBIN 8.8 g/dL (12.0-15.5); MEAN CORPUSCULAR HGB CONC 30.6 g/dL (32.0-36.0); MEAN CORPUSCULAR VOLUME 65 fl (80-97); RED BLOOD COUNT 4.38 10^6/uL (3.72-5.28); RED CELL DISTRIBUTION WIDTH 21.9 % (11.5-14.0); WHITE BLOOD COUNT 5.8 10^3/uL (4.0-10.5)
[2018-09-03 01:28] LABS: PLATELET COUNT 85 10^3/uL (150-450)
[2018-09-03 01:32] LABS: ABSOLUTE MONOCYTES # (MANUAL) 0.1 10^3/uL (0.1-1.4); ABSOLUTE NEUTROPHILS# (MANUAL) 4.6 10^3/uL (1.7-8.2); BASOPHILS % (MANUAL) 0 % (0-2); EOSINOPHILS % (MANUAL) 1 % (0-6); LYMPHOCYTES % (MANUAL) 17 % (13-45); MONOCYTES % (MANUAL) 2 % (3-13); SEGMENTED NEUTROPHILS % (MAN) 79 % (42-78); TOTAL CELLS COUNTED 100
[2018-09-03 01:33] LABS: PLATELET COMMENT DECREASED
[2018-09-03 01:35] LABS: PLATELET LARGE PRESENT
[2018-09-03 01:36] LABS: ANISOCYTOSIS 3+; OVALOCYTES SLIGHT; POIKILOCYTOSIS SLIGHT; POLYCHROMASIA SLIGHT; TEAR DROP CELLS SLIGHT
[2018-09-03] MEDS: PREGABALIN 75 MG CAPSULE PO SCH (06:02)
[2018-09-03] MEDS ORDERED: LISINOPRIL 5 MG TABLET PO SCH (10:00)
[2018-09-03] MEDS: IPRATROPIUM/ALBUTEROL 0.5-2.5 MG/3 ML AMPUL NEB PRN (10:07)
[2018-09-03] MEDS: PANTOPRAZOLE SODIUM 40 MG VIAL IV SCH (10:13)
[2018-09-03] MEDS: SERTRALINE HCL 50 MG TABLET PO SCH (10:13)
[2018-09-03] MEDS: METOPROLOL TARTRATE 25 MG TABLET PO SCH (10:14)
[2018-09-03] MEDS: ARIPIPRAZOLE 5 MG TABLET PO SCH (10:14)
[2018-09-03] MEDS: BUDESONIDE/FORMOTEROL 160-4.5 MCG 60 PUFF/6 GM MDI IH SCH (10:15)
--- NOTE | 2018-09-03 10:47 | Progress Note ---
Provider Note Provider Note: General Surgery events noted. POD#1 after EGD and colonoscopy with polypectomy x 2 Plan: Patient can be discharged to home at any time by our viewpoint F/u with her PCP in 1-2 weeks F/u with Dr. Gonzalez in 1-2 weeks for polypectomy results.
[2018-09-03] MEDS: ACETAMINOPHEN 325 MG TABLET PO PRN (11:57)
[2018-09-03] MEDS: INSULIN LISPRO 100 UNIT/ML 3 ML VIAL SUBCUT SCH ×2 (12:07→12:08)
[2018-09-03 12:53] VITALS: BP 163/58
--- NOTE | 2018-09-03 22:37 | PDOC DISCHARGE SUMMARY ---
General - Admit/Disc Date/PCP Admission Date/Primary Care Provider: 09/01/18 00:52 JULIAN NAVARRO MD Discharge Date: 09/03/18 - Discharge Diagnosis (1) Blood loss anemia Is this a current diagnosis for this admission?: Yes Summary: Colonoscopy revealed diverticula and a polyp. The polyp was removed. There was no evidence of active bleeding. (2) Microcytic anemia Is this a current diagnosis for this admission?: Yes Summary: Possibly a combination of blood loss with GI bleeding. Colonoscopy revealed diverticula and a polyp. The polyp was removed. The patient requires iron supplementation. (3) Colon polyp Is this a current diagnosis for this admission?: Yes Summary: Removed during endoscopy. She does have an appointment with gastroenterology as an outpatient. (4) Exertional shortness of breath Is this a current diagnosis for this admission?: Yes Summary: Multiple possibilities. She continues to smoke. She reports that it is positional (orthopnea) and she has sinus congestion with postnasal drip. She will follow-up with her primary care physician as well as cardiology. She may benefit from nasopharyngoscopy. (5) Diabetes mellitus Is this a current diagnosis for this admission?: Yes Summary: Resume previous insulin regimen. I suggested starting at a slightly lower dose until her diet is back to baseline. (6) Tobacco abuse Is this a current diagnosis for this admission?: Yes Summary: She needs to stop smoking. She did have a nicotine patch available during her stay. - Additional Information Resuscitation Status: Full Code Discharge Diet: Cardiac, Diabetic Discharge Activity: Activity As Tolerated, Balance Activity w/Rest, Walk Frequently Prescriptions: Lisinopril [Prinivil 5 mg Tablet] 5 mg PO DAILY 30 Days #30 tablet Home Medications: Aripiprazole [Abilify 5 mg Tablet] 5 mg PO DAILY 10/14/17 Canagliflozin [Invokana] 100 mg PO ACBRKFST 10/14/17 Hum Insulin NPH/Reg Insulin Hm [Novolin 70-30 100 Unit/ml Vial] 75 unit SQ QHS 10/14/17 Hum Insulin NPH/Reg Insulin Hm [Novolin 70-30 100 Unit/ml Vial] 80 unit SQ QAM 10/14/17 Metoprolol Tartrate [Lopressor 50 mg Tablet] 25 mg PO Q12 10/14/17 Omeprazole 20 mg PO DAILY 10/14/17 Pregabalin [Lyrica] 150 mg PO Q8 10/14/17 Albuterol Sulfate [Albuterol Sulfate Hfa] 2 puff IH Q4HP PRN 09/01/18 Aspirin [Ecotrin 81 mg EC Tablet] 81 mg PO DAILY 09/01/18 Budesonide/Formoterol Fumarate [Symbicort HFA 160-4.5 mcg Inhaler 6 gm] 2 puff IH Q12 09/01/18 Mometasone Furoate [Nasonex] 2 spray NS DAILYP PRN 09/01/18 Sertraline HCl [Zoloft] 100 mg PO DAILY 09/01/18 Acetaminophen [Tylenol 325 mg Tablet] 650 mg PO Q4HP PRN tablet 09/03/18 Aripiprazole [Abilify 5 mg Tablet] 5 mg PO DAILY tablet 09/03/18 Guaifenesin [Robitussin Syrup 200 mg/10 ml Ud Cup] 100 mg PO Q4HP PRN udc 09/03/18 Lisinopril [Prinivil 5 mg Tablet] 5 mg PO DAILY 30 Days #30 tablet 09/03/18 Pregabalin [Lyrica 75 mg Capsule] 150 mg PO Q8 capsule 09/03/18 History of Present Illness Patient complains of: Fatigue and shortness of breath with exertion History of Present Illness: JESENIA NOVAK is a 58 year old female who continues to smoke. She reported to the hospital because of worsening fatigue and increased shortness of breath with exertion. She had a guaiac positive stool and decreased hemoglobin (7.3) down from 10.5 several weeks ago. She was going to see gastroenterology earlier this week but she was hospitalized. Hospital Course Hospital Course: She had a fairly unremarkable hospital course. Colonoscopy revealed a polyp that was removed and diverticula. She did receive unit of packed red blood cells. There are multiple potential etiologies for her shortness of breath including her chronic anemia. She was stable post colonoscopy. Her hemoglobin is improved. She will be discharged today. She will have follow-up appointments with Dr. 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 madera to establish with a local fiberglass boat assembly supervisor She needs follow-up with Dr. Navarro who is her primary care physician. Because of this chronic cough and allergic rhinitis she might benefit from a nasopharyngoscopy. Dr. Navarro can monitor her anemia and thrombocytopenia. Physical Exam Vital Signs: Temp Pulse Resp BP Pulse Ox 98.2 F 84 18 163/58 H 98 09/03/18 10:44 09/03/18 10:44 09/03/18 10:44 09/03/18 10:44 09/03/18 10:44 Intake & Output 09/02/18 09/03/18 09/04/18 06:59 06:59 06:59 Intake Total 300 968 250 Output Total 3750 975 Balance -3450 -7 250 Weight 113.1 kg General appearance: PRESENT: no acute distress, obese, well-developed Head exam: PRESENT: normocephalic Eye exam: PRESENT: conjunctiva pale. ABSENT: scleral icterus Mouth exam: PRESENT: moist, tongue midline Respiratory exam: PRESENT: clear to auscultation rosanna, symmetrical, unlabored. ABSENT: accessory muscle use, rales, rhonchi, wheezes Cardiovascular exam: PRESENT: RRR, +S1, +S2 GI/Abdominal exam: PRESENT: normal bowel sounds, soft. ABSENT: distended, tende rness Rectal exam: PRESENT: deferred Extremities exam: ABSENT: pedal edema Neurological exam: PRESENT: alert, awake, oriented to place, oriented to time, oriented to situation, CN II-XII grossly intact Psychiatric exam: PRESENT: appropriate affect, normal mood. ABSENT: agitated, anxious Focused psych exam: ABSENT: delusional, restlessness Results Laboratory Results: 09/03/18 00:39 09/02/18 07:04 09/03/18 00:39 WBC 5.8 RBC 4.38 Hgb 8.8 L Hct 28.6 L MCV 65 L MCH 20.0 L MCHC 30.6 L RDW 21.9 H Plt Count 85 L Seg Neutrophils % Not Reportable Lymphocytes % Not Reportable Monocytes % Not Reportable Eosinophils % Not Reportable Basophils % Not Reportable Absolute Neutrophils Not Reportable Absolute Lymphocytes Not Reportable Absolute Monocytes Not Reportable Absolute Eosinophils Not Reportable Absolute Basophils Not Reportable 08/31/18 08/31/18 09/01/18 21:50 21:50 00:39 Creatine Kinase 54 CK-MB (CK-2) 0.93 Troponin I < 0.012 < 0.012 NT-Pro-B Natriuret Pep 1460 H Impressions: Chest X-Ray 08/31/18 21:35 IMPRESSION: Mild central pulmonary vascular congestion and possible tiny pleural effusions. Qualifiers - * PATIENT BEING DISCHARGED WITH ANY OF THE FOLLOWING DIAGNOSIS: No Plan Time Spent: Greater than 30 Minutes
== END 2018-09-03 14:50 | disposition home or self-care (01) | DRG 812 ==
LOC: ER 20:52 → EH 09-01 00:52 → 3S 09-01 02:29
PROVIDERS: ADMIT Internal Medicine; ATTEND Internal Medicine
PROC: 30233N1 Transfusion of Nonautologous Red Blood Cells into Peripheral Vein, Percutaneous Approach (ICD-10-PCS; principal; 2018-09-01)
PROC: 0DBK8ZX Excision of Ascending Colon, Via Natural or Artificial Opening Endoscopic, Diagnostic (ICD-10-PCS; 2018-09-02)
PROC: 0DBH8ZX Excision of Cecum, Via Natural or Artificial Opening Endoscopic, Diagnostic (ICD-10-PCS; 2018-09-02)
PROC: 0DJ08ZZ Inspection of Upper Intestinal Tract, Via Natural or Artificial Opening Endoscopic (ICD-10-PCS; 2018-09-02 09:30)
DX: D62 Acute posthemorrhagic anemia (principal); K63.5 Polyp of colon; D69.6 Thrombocytopenia, unspecified; I10 Essential (primary) hypertension; E78.5 Hyperlipidemia, unspecified; E03.9 Hypothyroidism, unspecified; J44.9 Chronic obstructive pulmonary disease, unspecified; E11.8 Type 2 diabetes mellitus with unspecified complications; F32.9 Major depressive disorder, single episode, unspecified; F17.210 Nicotine dependence, cigarettes, uncomplicated; Z79.82 Long term (current) use of aspirin; Z79.4 Long term (current) use of insulin; Z79.51 Long term (current) use of inhaled steroids; Z79.899 Other long term (current) drug therapy
CPT/HCPCS: 36415; 36430; 43235; 45385; 71045; 80048; 80053; 82550; 82553; 82607; 82728; 82746; 82962; 83540; 83550; 83880; 84484; 85025; 85027; 85045; 86850; 86900; 86901; 86920; 88305; 93005; 93010; 99285; J0171; J1200; J1610; J1756; J1815; J1940; J2250; J2310; J2405; J3010; J3480; J3490; J7030; J7620; P9016; S0164

== ENCOUNTER → 2018-09-22 | Outpatient (CLI) | payer MEDICARE ==
--- NOTE | 2018-09-22 13:39 | RADIOLOGY REPORT (SQ) ---
EXAM DESCRIPTION: CAROTID DOPPLER COMPLETED DATE/TIME: 09/22/2018 10:18 am REASON FOR STUDY: CAROTID BRUITS R09.89 OTH SYMPTOMS AND SIGNS INVOLVING THE CIRC AND RESP SY R06.0 2 SHORTNESS OF BREATH COMPARISON: None. TECHNIQUE: Grayscale ultrasound, Doppler velocity and spectra, and color Doppler images acquired of the extra-cranial carotid and vertebral arteries. Images stored on PACS. LIMITATIONS: None. FINDINGS: RIGHT CAROTID CCA Velocities: Within normal limits. ICA Velocities Peak systolic 120 a cm/s. End diastolic 31 cm/s. Proximal ICA/CCA peak systolic ratio 1.27. There is plaque in the proximal internal carotid. LEFT CAROTID CCA Velocities: Within normal limits. ICA Velocities Peak systolic 128 cm/s. End diastolic 33 cm/s. Proximal ICA/CCA peak systolic ratio 1.38. Very high velocities in the left external carotid artery with considerable plaque. There is plaque i n the left carotid bulb and proximal internal carotid. VERTEBRAL ARTERIES: Antegrade flow. Normal waveforms. SUBCLAVIAN ARTERIES: No finding. OTHER: No other significant finding. IMPRESSION: No hemodynamically significant ICA stenoses. There is relatively high-grade stenosis of the left external carotid. COMMENT: Quality ID #[id number]: Velocity criteria are extrapolated from the diameter data as defined by t he Society of Radiologists in Ultrasound Consensus Conference. Radiology 2003: 229; 340-346. TECHNICAL DOCUMENTATION: JOB ID: [id number] [employer]- All Rights Reserved Reading location - IP/workstation name: [email or web address]
--- NOTE | 2018-09-22 22:17 | XCELERA REPORT ---
[address] [address] Transthoracic Echocardiogram Report Name: JESENIA NOVAK Age: 58 yrs Gender: Female : 1960 Patient Status: Outpatient Patient Location: Study Date: 09/22/2018 09:15 AM Height: 67 in Weight: 242 lb BSA: 2.2 m2 Procedure: A two-dimensional transthoracic echocardiogram with color flow Doppler was performed. Study Quality: Technically suboptimal. The study was technically difficult with many images being suboptimal in quality. Reason For Study: SOB History: Shortness of breath. Ordering Physician: JULIAN LAY Performed By: Martha Vargas Interpretation Summary The left ventricle is normal in size. There is normal left ventricular wall thickness. LV EF is 60% Left ventricular systolic function is normal. Doppler measurements suggest impaired left ventricular relaxation, which is associated with grade I/IV or mild diastolic dysfunction The left ventricular wall motion is normal. There is no thrombus. The right ventricle is not well visualized secondary to technical limitations Right atrium not well visualized secondary to technical limitations The left atrial size is normal. There is no evidence of mitral valve prolapse. There is no vegetation seen on the mitral valve. There is no mitral valve stenosis. There is a trace amount of mitral regurgitation There is no aortic valve stenosis There is no LVOT obstruction. No aortic regurgitation is present. There is no tricuspid stenosis. There is a trace amount of tricuspid regurgitation The pulmonic valve is not well visualized. There is no pericardial effusion. MMode/2D Measurements & Calculations IVSd: 0.95 cm LVIDd: 4.6 cm FS: 32.8 % Ao root diam: 3.1 cm LVIDs: 3.1 cm EDV(Teich): 97.5 ml Ao root area: 7.5 cm2 LVPWd: 1.1 cm ESV(Teich): 37.7 ml EF(Teich): 61.3 % Doppler Measurements & Calculations MV E max kinsey: MV dec slope: Ao V2 max: LV V1 max P.9 cm/sec 755.0 cm/sec2 177.6 cm/sec 7.1 mmHg MV A max kinsey: MV dec time: 0.16 secAo max PG: LV V1 max: 142.9 cm/sec 12.6 mmHg 133.5 cm/sec MV E/A: 0.84 LV dP/dt: 55499 mmHg/s PA V2 max: 125.1 cm/sec PA max P.3 mmHg Left Ventricle The left ventricle is normal in size. There is normal left ventricular wall thickness. LV EF is 60%. Left ventricular systolic function is normal. Doppler measurements suggest impaired left ventricular relaxation, which is associated with grade I/IV or mild diastolic dysfunction. The left ventricular wall motion is normal. There is no thrombus. Right Ventricle The right ventricle is not well visualized secondary to technical limitations. Atria Right atrium not well visualized secondary to technical limitations. The left atrial size is normal. Mitral Valve There is no evidence of mitral valve prolapse. There is no vegetation seen on the mitral valve. There is no mitral valve stenosis. There is a trace amount of mitral regurgitation. Aortic Valve There is no aortic valve stenosis. There is no LVOT obstruction. No aortic regurgitation is present. Tricuspid Valve There is no tricuspid stenosis. Unable to calculate RVSP due lack of TR jet. There is a trace amount of tricuspid regurgitation. Pulmonic Valve The pulmonic valve is not well visualized. Effusions There is no pericardial effusion. : JULIAN LAY > Marcie Johnson
== END ==
LOC: SP 09:05
PROVIDERS: ATTEND Family Medicine Geriatric Medicine
DX: I65.22 Occlusion and stenosis of left carotid artery (principal); R06.02 Shortness of breath
CPT/HCPCS: 93306; 93880

== ENCOUNTER → 2018-10-22 | Outpatient (CLI) | payer MEDICARE | LOC: WI 10:48 | PROVIDERS: ATTEND Family Medicine Geriatric Medicine | DX: Z12.31 Encounter for screening mammogram for malignant neoplasm of breast (principal) | CPT/HCPCS: 77067 ==